=== PATIENT | male | born 1950 | race Caucasian/White ===

== ENCOUNTER 2019-07-10 07:54 | Outpatient (CLI) | payer MEDICARE, SELFPAY ==
--- NOTE | 2019-07-10 08:04 | USCV_ITS ---
Addison Mccloud Age: 68 Gender: M : 1950 Exam Date: 07/10/2019 08:22 Ordering Phys: Reymundo Cain MD Technologist: Lico Ramírez Exam Location: [facility] [place] Indication: PEDAL EDEMA BP: 134 / 84 HR: 67 Rhythm: Sinus Technical Quality: Fair MEASUREMENTS (Male / Female) Normal Values 2D ECHO LV Diastolic Diameter PLAX 3.2 cm 4.2 - 5.9 / 3.9 - 5.3 cm LV Systolic Diameter PLAX 2.5 cm IVS Diastolic Thickness 1.2 cm 0.6 - 1.0 / 0.6 - 0.9 cm IVS Systolic Thickness 1.5 cm LVPW Diastolic Thickness 1.1 cm 0.6 - 1.0 / 0.6 - 0.9 cm LVPW Systolic Thickness 1.3 cm LVOT Diameter 2.0 cm LV Ejection Fraction 2D Teich 47.8 % LV Ejection Fraction MOD 2C 55.2 % LV Ejection Fraction 2C AL 54.1 % LA Diameter 3.9 cm LA Width 3.9 cm LA Height 4.9 cm RA Width 3.6 cm RA Height 4.4 cm Aorta at Sinotubular Diameter 3.2 cm M-MODE LV Diastolic Diameter MM 5.4 cm 4.2 - 5.9 / 3.9 - 5.3 cm LV Systolic Diameter MM 3.7 cm LV Ejection Fraction MM Teich 59.1 % IVS Diastolic Thickness MM 1.3 cm 0.6 - 1.0 / 0.6 - 0.9 cm IVS Systolic Thickness MM 2.0 cm LVPW Diastolic Thickness MM 1.6 cm 0.6 - 1.0 / 0.6 - 0.9 cm LVPW Systolic Thickness MM 2.0 cm RV Diastolic Diameter MM 0.9 cm Aortic Annulus Diameter 4.0 cm LA Ao Ratio MM 1.0 MV E Point Septal Separation 1.1 cm DOPPLER AV Peak Velocity 113.0 cm/s LVOT Peak Velocity 82.0 cm/s AV Area Cont Eq vti 2.4 cm squared AV Area Cont Eq pk 2.3 cm squared MV Area PHT 5.0 cm squared Mitral E to A Ratio 0.7 MV E' Velocity 8.0 cm/s Mitral E to MV E' Ratio 8.2 Mitral E to LV E' Lateral Ratio 7.7 Mitral E to LV E' Septal Ratio 8.8 TR Peak Velocity 139.0 cm/s TR Peak Gradient 7.7 mmHg Right Atrial Pressure 3.0 mmHg Pulmonary Artery Systolic Pressu 10.7 mmHg FINDINGS Left Ventricle Normal LV size with slightly diminished ejection fraction 50%. Mild diffuse hypokinesia of the septum and the anteroseptal segments.Grade I/IV diastolic dysfunction (abnormal relaxation filling pattern), normal to mildly elevated filling pressures. Right Ventricle Possibly of normal size ejection fraction Right Atrium Possibly of normal size Left Atrium Appears to be of normal size. Mitral Valve No gross abnormalities noted Aortic Valve Thickened aortic valve. Tricuspid Valve No gross abnormalities noted Pulmonic Valve No gross abnormalities noted Pericardium No pericardial effusion. Aorta Normal aortic annulus size. CONCLUSIONS Normal LV size with slightly diminished ejection fraction 50%. Mild diffuse hypokinesia of the septum and the anteroseptal segments. Grade I/IV diastolic dysfunction (abnormal relaxation filling pattern), normal to mildly elevated filling pressures. Thickened aortic valve. There is no pericardial effusion. There are no intracardiac masses. Technically difficult study because of the poor ultrasonic window. Dr Lion Olguin MD FACC (Electronically Signed) Final Date: 10 July 2019 18:46 S
== END 2019-07-10 07:55 | disposition home or self-care (01) ==
PROVIDERS: Family Provider Family Medicine; PCP Family Medicine; Visit Provider Family Medicine
DX: I35.8 Other nonrheumatic aortic valve disorders (principal); R60.9 Edema, unspecified; R06.02 Shortness of breath; I25.10 Atherosclerotic heart disease of native coronary artery without angina pectoris; I10 Essential (primary) hypertension
CPT/HCPCS: 93306

== ENCOUNTER → 2021-03-31 08:33 | Outpatient (BNVA) | payer MEDICARE, SELFPAY | PROVIDERS: Family Provider Family Medicine; PCP Family Medicine; Referring Provider Family Medicine; Visit Provider Orthopaedic Surgery | DX: M54.50 Low back pain, unspecified (principal); M25.559 Pain in unspecified hip; M47.896 Other spondylosis, lumbar region | CPT/HCPCS: 72110; 73502 ==

== ENCOUNTER → 2021-06-18 00:01 | Outpatient (BNVA) | payer MEDICARE, SELFPAY | PROVIDERS: Family Provider Family Medicine; PCP Family Medicine; Visit Provider Orthopaedic Surgery | DX: Z20.822 Contact with and (suspected) exposure to COVID-19 (principal); M48.062 Spinal stenosis, lumbar region with neurogenic claudication | CPT/HCPCS: 87635 ==

== ENCOUNTER 2021-06-24 12:29 | Inpatient (IN) | payer MEDICARE, SELFPAY ==
[2021-06-22 07:59] VITALS: BMI 39.2
--- NOTE | 2021-06-22 08:03 | ECG_ITS ---
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 Measurements Intervals [place] Rate: 83 P: 49 HI: 200 QRS: -9 QRSD: 102 T: 75 QT: 376 QTc: 442 Interpretive Statements SINUS RHYTHM LOW QRS VOLTAGE IN PRECORDIAL LEADS [QRS DEFLECTION < 1.0 mV IN CHEST LEADS] No previous ECG available for comparison Electronically Signed On 06-22-2021 16:17:36 REPEAT PHOTOCOMPOSING MACHINE OPERATOR by Alejandra Kerr M.D. [id number]
[2021-06-22 09:06] LABS: Basophils # 0.1 10^3/uL (0.0-0.1); Basophils % 0.8 %; Eosinophils # 0.1 10^3/uL (0.0-0.8); Eosinophils % 2.2 %; Hematocrit 42.7 % (42.0-52.0); Hemoglobin 13.9 g/dL (11.7-16.6); Lymphocytes # 1.9 10^3/uL (0.8-4.8); Lymphocytes % 31.7 %; Mean Corpuscular HGB Conc 32.6 g/dL (30.0-36.0); Mean Corpuscular Hemoglobin 32.4 pg (28.0-34.0); Mean Corpuscular Volume 99.5 fl (80-94); Mean Platelet Volume 10.4 fL (7.4-10.4); Monocytes # 0.6 10^3/uL (0.2-0.9); Monocytes % 9.7 %; Neutrophils # 3.26 10^3/uL (1.8-7.7); Neutrophils % 55.4 %; Nucleated Red Blood Cells % 0 %; Platelet Count 214 10^3/cmm (130-400); Red Blood Count 4.29 10^6/uL (4.1-5.3); White Blood Count 5.9 10^3/uL (4.0-10.0)
--- NOTE | 2021-06-22 10:20 | P.ANESASSM_ITS ---
Pre-Anesthetic Assessment Height/Weight: Height 1.85 m Weight 134.717 kg Preop Diagnosis: Lumbar stenosis with claudication Operation Date: 06/24/21 07:00 Proposed Procedures p L3-S1 PSF &L5-S1 PLIF [id number]/89421/,48.062/m43.16(Not Applicable) - Abdiel Adkins, DO Familial anesthetic complications: Denies Was Beta Shakir taken within 24 hours: Yes Was Clonidine taken within 24 hours: N/A Social No alcohol and No tobacco Exam alert, oriented x 3, clear to auscultation bilaterally and regular rate & rhythm Airway Submandibular: within normal limits Cervical ROM: within normal limits Mallampati: Class II Dentition: false Pulmonary None reported CV/HEM Coronary Artery Disease (Patient's states he had coronary stent about 15 years ago denies recent CP) and Hypertension METs < 4 due to LE weakness TTE 06/2019 ?CONCLUSIONS ?Normal LV size with slightly diminished ejection fraction 50%.? ?Mild diffuse hypokinesia of the septum and the anteroseptal ?segments. ?Grade I/IV diastolic dysfunction (abnormal relaxation filling ?pattern), normal to mildly elevated filling pressures. ?Thickened aortic valve. ?There is no pericardial effusion. ?There are no intracardiac masses. ?Technically difficult study because of the poor ultrasonic ?window. Urinary retention GI None reported Metabolic None reported Musc/skel Lower Back Pain and Osteoarthritis/DJD Thoracic myelopathy Anesthetic Plan ASA status: 3 (70 year old w/ hx of CAD w/ coronary stent, lumbago, obesity, HTN, urinary retention, and myelopathy ) Anesthesia: Anesthesia Evaluation and General Other: We discussed risk and benefits of general anesthesia including PONV, sore throat (sometimes severe), corneal abrasion, positioning and peripheral nerve injuries, life threatening allergic reaction, post operative ICU admission requiring prolonged intubation, stroke, heart attack, , and rare incidences of recall. Patient consents to proceed with general anesthesia with possible apolinar rial line PRN. Risk of > 500 ml blood loss (7ml/kg in children): No Other Pertinent Information Hx of urinary retention following spinal surgery Medications/Allergies Home Medications Medication Instructions Recorded Confirmed Last Taken Type acetaminophen 325 mg tablet 650 mg PO Q6H PRN tab 11/14/19 06/22/21 Unknown History aspirin 81 mg tablet,delayed 81 mg PO DAILY 11/14/19 06/22/21 Unknown History release (Adult Low Dose Aspirin) cholecalciferol (vitamin D3) 25 25 mcg PO DAILY 11/14/19 06/22/21 Unknown History mcg (1,000 unit) capsule lisinopril 5 mg tablet 5 mg PO BEDTIME 11/14/19 06/22/21 Unknown History sennosides 8.6 mg-docusate sodium 2 tab-cap PO BID tab 11/14/19 06/22/21 Unknown History 50 mg tablet (Senna with Docusate Sodium) simvastatin 40 mg tablet 40 mg PO BEDTIME 11/14/19 06/22/21 Unknown History meloxicam 15 mg tablet (Mobic) 15 mg PO DAILY 06/22/21 06/22/21 Unknown History Allergies Allergy/AdvReac Type Severity Reaction Status Date / Time gabapentin Allergy Mild unknown Verified 05/26/21 08:56 [facility] Anesthesia Medical History BPH loc w urin obs/LUTS Constipation Degenerative lumbar spinal stenosis Dyslipidemia HTN (hypertension) Thoracic myelopathy Urinary retention Family History Father Cancer Brother Cancer Sister CAD (coronary artery disease) Mother CAD (coronary artery disease) Other Diabetes Social History Smoking and tobacco status: never smoked Alcohol intake: never Adopted: No Caregiver/support person: No Lives independently: No Household members: spouse Marital status: Current occupational status: retired Data Anesthesia : 06/22/21 08:51 Short CBC 06/22/21 Range/Units 08:51 WBC 5.9 (4.0-10.0) 10^3/uL Hgb 13.9 (11.7-16.6) g/dL Hct 42.7 (42.0-52.0) % MCV 99.5 H (80-94) fl Plt Count 214 (130-400) 10^3/cmm Neut % (Auto) 55.4 % Neut # (Auto) 3.26 (1.8-7.7) 10^3/uL Blood Bank 06/22/21 08:51 Blood Type A Positive Rho(D) Type Positive Cardiac Studies: Echocardiogram Ultrasound 07/10/19
[2021-06-24] VITALS (21 sets, daily range): BP systolic 110–166; BP diastolic 73–104; PULSE 80–110; RESP 12–21; TEMP 36.2–36.7; O2SAT 88–99; BMI 39.2
--- NOTE | 2021-06-24 | SCC_ITS ---
Procedure done: 1. L5/S1 Interbody fusion with posterolateral fusion 2. Instrumentation L2-S1 3. posterolateral fusion from L2-S1 4. Cage at L5/S1 5. Laminectomy L5 6. use of autograft from same incision 7. allograft 8. Bone marrow aspirate from right iliac crest 9. Computer navigation/ stereotactic for spine 9 seconds of fluoroscopic guidance, for a cumulative dose of 72.7 mGy, was provided to Dr. Adkins by the radiology department. C-arm images of the lumbar spine were saved for the patient's permanent record. [facility]
--- NOTE | 2021-06-24 06:41 | PM.HP ---
Providers/Chief Complaint Primary Care Provider: Reymundo Cain MD Chief Complaint: spinal stenosis, lumbar region History of Present Illness Addison Mccloud is a 70 year old male He describes having pain and weakness to his right hip. He states the pain to his his hip goes into his entire leg but is unable to specify on exact location. He feels his pain started years ago after working on a tractor all day. He states he had a lumbar spine surgery and two cervical spine surgeries done by Dr. Molina in [place] in February of 2020. He notes only a small amount of improvement in pain since surgery. Chief Complaint: right hip/low back Onset: 2 years Duration: years Characteristics: ache, weakness Severity: 5/10 Location: right hip/low back Radiating symptoms: right hip Aggravating factors: walking Alleviating factors: rest Neuro deficits: denies numbness, tingling,? incontinence of bowel/bladder, saddle anesthesia. Prior tx: 3 previous spine surgery done in [place]. Fusion to his lumbar and cervical with the last surgery in 2019, Inpatient physical therapy. Review of Systems Narrative: General ROS: negative for weight changes, fever ENT ROS: negative for nasal congestion, drainage or bleeding, sore throat, dysphagia or ear pain Eyes: PERRL Hematological and Lymphatic ROS: negative for swollen glands or abnormal bleeding Endocrine ROS: negative for polyuria/polydpsia or new changes in weight Respiratory ROS: negative for cough, shortness of breath, or wheezing Cardiovascular ROS: negative for chest pain or dyspnea on exertion Gastrointestinal ROS: negative for reflux, abdominal pain, change in bowel habits, or black or bloody stools Musculoskeletal ROS: negative for back pain, neck pain, or joint pain or swelling except for current problem Neurological ROS: negative for TIA or stoke symptoms Skin: no rashes Medications/Allergies Home Medications Medication Instructions Recorded Confirmed Last Taken Type acetaminophen 325 mg tablet 650 mg PO Q6H PRN tab 11/14/19 06/24/21 06/22/21 History aspirin 81 mg tablet,delayed 81 mg PO DAILY 11/14/19 06/24/21 06/22/21 History release (Adult Low Dose Aspirin) cholecalciferol (vitamin D3) 25 25 mcg PO DAILY 11/14/19 06/24/21 06/22/21 History mcg (1,000 unit) capsule lisinopril 5 mg tablet 5 mg PO BEDTIME 0706/24/21 06/22/21 History sennosides 8.6 mg-docusate sodium 2 tab-cap PO BID tab 11/14/19 06/24/21 06/22/21 History 50 mg tablet (Senna with Docusate Sodium) simvastatin 40 mg tablet 40 mg PO BEDTIME 11/14/19 06/24/21 06/22/21 History meloxicam 15 mg tablet (Mobic) 15 mg PO DAILY 06/22/21 06/24/21 06/22/21 History Allergies Allergy/AdvReac Type Severity Reaction Status Date / Time gabapentin Allergy Mild unknown Verified 06/24/21 06:00 PFSH Acute PFSH: Medical History BPH loc w urin obs/LUTS Constipation Degenerative lumbar spinal stenosis Dyslipidemia HTN (hypertension) Thoracic myelopathy Urinary retention Family History Father Cancer Brother Cancer Sister CAD (coronary artery disease) Mother CAD (coronary artery disease) Other Diabetes Social History Smoking and tobacco status: never smoked Alcohol intake: never Adopted: No Caregiver/support person: No Lives independently: No Household members: spouse Marital status: Current occupational status: retired Vitals/I&O/Wt Last Vital Signs Temp 97.3 F L 06/24/21 06:03 Pulse 80 06/24/21 06:03 Resp 16 06/24/21 06:03 BP 148/100 06/24/21 06:03 Pulse Ox 98 06/24/21 06:03 Weight last 48 hrs Weight 297 lb Weight 297 lb Physical Exam Narrative: CONSTITUTIONAL: The patient is a normal appearing [] in no apparent distress. GENERAL: Patient in no acute distress. CARDIAC: Regular rate and rhythm. CHEST: Normal inspiratory effort, normal respiratory rate. ABDOMEN: Soft and nontender. SKIN: Clear, warm and intact. NEURO?PSYCH: The patient is alert and oriented to person, place and time. Sensorv /SILT Motor StrengthShoulder abduction C5 5/5Wrist extension C6 5/5Elbow extension C7 5/5Hand Tattoo Technician C8 5/5Finger abduction T15/5 Radial/ Ulnar/ Median n intact LowerSensory (SILT)Motor StrengthHin flexion L2/3Ant/inner thigh 5/5Hip adduction L2/3 5/5Knee extension L4 Lat thigh, 5/5Toe dorsiflexion L5 5/5Ankle dorsiflexion L5/ J42Lojetiq flexion S1 5/5 DTRBleeps 2+Triceps 2+Brachioradialis 2+Patellar 2+Achilles 2+ MUSCULOSKELETAL: [] UPPEREXTREMITIES: The patient had full active ROM in fingers, wrist, elbow, and shoulder. The patient demonstrated ability to fully flex/extend/abduct/adduct fingers, make ok sign, cross 2nd/3rd digits, extend 1st digit fully.. Radial pulse 2+, CR<2 seconds. LOWER EXTREMITIES: Pt has full, active ROM of toes, ankle, knee, and hip. Dorsalis pedis/posterior tibialis pulses 2+, CR<2 seconds. SPINE: Skin warm, dry, intact. Data : 06/22/21 08:51 A&P Assessment and plan (1) Lumbar stenosis with neurogenic claudication: L2-S1 PSF, PLIF L5/S1 decompression Status: Acute Attestations Medical Necessity Statement*: failed conservative tx Coding Level of Care Code Acute Rent Collector for [facility] Fwd Diagnoses Lumbar stenosis with neurogenic claudication M48.062
[2021-06-24] MEDS: sodium chloride 0.9% 1,000 ML 30 ML IV (06:50)
--- NOTE | 2021-06-24 06:55 | P.ANESUD_ITS ---
Pre-Anesthetic Update Pre-Anesthetic Assessment: Date of Surgery/Procedure: 06/24/21 Preop Jessie gnosis: Degenerative disc disease with lumbar stenosis and neurogenic claudication Proposed Procedure: Operation Date: 06/24/21 07:00 Proposed Procedures p L3-S1 PSF &L5-S1 PLIF [id number]/01250/70717/,48.062/m43.16(Not Applicable) - Abdiel Adkins, DO Any changes to Pre-Anesthetic Assessment?: No Last Intake: Intake Last Liquid Date 06/23/21 Last Liquid Time 20:00 Last Solid Date 06/23/21 Last Solid Time 15:00 Labs Last 48hrs: Short CBC 06/22/21 Range/Units 08:51 WBC 5.9 (4.0-10.0) 10^3/ uL Hgb 13.9 (11.7-16.6) g/dL Hct 42.7 (42.0-52.0) % MCV 99.5 H (80-94) fl Plt Count 214 (130-400) 10^3/c mm Neut % (Auto) 55.4 % Neut # (Auto) 3.26 (1.8-7.7) 10^3/u L Blood Bank 06/22/21 08:51 Blood Type A Positive Rho(D) Type Positive Antibody Screen Negative Vitals: Temperature 97.3 F L 06/24/21 06:03 Temperature Source Temporal Artery S can 06/24/21 06:03 Pulse Rate 80 06/24/21 06:03 Respiratory Rate 16 06/24/21 06:03 Blood Pressure 148/100 06/24/21 06:03 Blood Pressure Negar n 116 06/24/21 06:03 Pulse Oximetry 98 06/24/21 06:03 Oxygen Delivery Me thod 06/24/21 06:03 Exam: Pre-Anes Outpt Exam: alert, oriented x 3, clear to auscultation bilaterally and regular rate & rhythm Cardiac Studies: Echocardiogram Ultrasound 07/10/19
[2021-06-24] MEDS: heparin, porcine 1,000 unit/mL INJ 10 mL 10000 UNIT IRRIGATION (07:30)
[2021-06-24] MEDS: vancomycin 1,000 MG SDV 1000 MG XX (07:30)
--- NOTE | 2021-06-24 10:52 | P.OP_ITS ---
Operative Report Date of procedure: June 24, 2021 Pre-op diagnosis: Preop Diagnosis Degenerative disc disease with lumbar stenosis and neurogenic claudication Post-op diagnosis: same Procedure done: 1. L5/S1 Interbody fusion with posterolateral fusion 2. Instrumentation L2-S1 3. posterolateral fusion from L2-S1 4. Cage at L5/S1 5. Laminectomy L5 6. use of autograft from same incision 7. allograft 8. Bone marrow aspirate from right iliac crest 9. Computer navigation/ stereotactic for spine Surgeon: Abdiel Adkins Ob Gyn Physician Assistant: Jamil Tompkins Ob Gyn Physician Assistant: The surgical garment assembly supervisor, Jamil Tompkins, PAC was needed for his expertise under the microscope. He was important and necessary throughout the procedure to complete in a safe and timely manner. He assisted with patient positioning prepping and draping tissue retraction suctioning of the operative field protection of the dural sac and tissue closure Estimated blood loss (mL): 200 Procedure: 1. L5/S1 Interbody fusion with posterolateral fusion 2. Instrumentation L2-S1 3. posterolateral fusion from L2-S1 4. Cage at L5/S1 5. Laminectomy L5 6. use of autograft from same incision 7. allograft 8. Bone marrow aspirate from right iliac crest 9. Computer navigation/ stereotactic for spine Patient is brought to the operative suite. After undergoing anesthesia, the patient had neuro monitoring attached. Patient was then placed in the prone position on the Juan table. All areas of impingement were well-padded. Patient was then prepped and draped in the normal sterile fashion. Skin incision was then made from L2 to S1 space. Subperiosteal dissection was made out to the transverse processes of L2 and L5 and the sacral ala (S1) bilaterally. Once the exposure was complete attention was then brought to obtaining the bone marrow aspirate. The [employer] bone marrow aspirate kit was used to aspirate bone marrow aspirate from the right iliac crest. This was done by using the sharp probe to open up the bone. Aspiration was performed and then the blunt probe was then used to dissect down to through the bone tunnel. An aspirating well drawn back a millimeter approximately 20 cc of bone marrow aspirate was used. Admixed with the allograft and autograft bone that will be used. Next attention was brought to placing the fiducial for the computer navigation. 2 pins were placed into the right iliac crest. The fiducial was attached. The C arm was then brought in and spun around the patient. The information from the serum was then linked through the fiducial through the computer in order to facilitate using computer navigation. The technique for placing the pedicle screws was to use a drill followed by the gearshift probe with computer navigation Followed by the ball probe to feel the superior inferior medial lateral duarte of the pedicles. Then placement of the screws with computer navigation Was done at each pedicle. Screws were placed at L2 bilaterally and L3 bilaterally, L4 bilaterally, L5 bilaterally, and S1 bilaterally. Next attention was brought to performing the laminectomy ofL5. This was done using the high-speed bur Kerrisons and curettes. Once the lamina was removed and then attention was brought to performing a partial facetectomy on the con tralateral side. This was done again using the high-speed bur curettes and Kerrisons. The ligamentum flavum was taken down bilaterally from L4 to S1. Attention was then brought to the facet on the ipsilateral side. The facet was taken down. The S1 nerve was decompressed as it passed around the S1 pedicle. The laminectomy was done for purposes of decompressing the nerve as well as placement of the cage. The L5 nerve was identified as it traversed through the L5/S1 foramen. The thecal sac was identified and retracted. The L5/S1 disc base was identified. Using a knife the disc base was opened. And then sequential del were placed. The first shaver was a 6 and the last shaver was a 13. Using a pituitary and down going curette the endplates were scraped and disc material was removed from the space. Once adequate decompression of the disc base was felt to be had. Osteoamp sponge was packed into the anterior aspect of the disc base. Then a size 13 cage from [employer] was placed after packing osteoamp into the cage. While placing the cage the thecal sac and S1 nerve was protected. C arm was used to ensure that the cages placed in the appropriate position. Attention was then brought to attaching the rods to the screws placed in the L2 to S1 bilaterally. Caps were torqued into position. Locking the construct in place. Wound was copiously irrigated and then attention was brought to decorticating the facets and transverse processes laterally. Bone that was taken down from the lamina was used along with osteoamp fibers and sponges were packed into the lateral gutters along the facet joints. This was done bilaterally. Wound was then closed in a layered fashion starting with the thoracolumbar fascia. 0-vicryl was used the sub cutaneous tissue was closed with 2-0 vicryl and skin with 4-0 monocryl. Glue was then used to seal the skin and a steril dressing was applied. Patient was then placed in the supine position. The endotracheal tube was removed and patient was transferred to the PACU in stable condition.
--- NOTE | 2021-06-24 10:56 | XR_ITS ---
WS: [id number] Lumbar spine, C-arm fluoroscopy, 06/24/2021 Clinical Data: OR PICS Comparison: None. Findings: Dr. Adkins performed a posterior lumbar fusion. XR/XR lumbar spine 1V [id number] Impression: Posterior lumbar fusion.
--- NOTE | 2021-06-24 11:43 | SUR.PHASEI ---
1137: patient brought into pacu on floor bed. patient asleep, simple mask placed with o2 at 8l and sats at 96%. patient has hemovac drain in place, barrios draining and abdominal binder on. toes are warm and pink bilaterally. 1151: patient still sleeping, no pain per faces.
--- NOTE | 2021-06-24 12:52 | ANE.PACU2 ---
Inpatient post-anesthesia follow up: Airway intact: Yes Vital signs: Temperature 97.1 F Pulse Rate 94 Respiratory Rate 20 Blood Pressure 136/100 Pulse Oximetry 94 Oxygen Delivery Me thod Nasal Cannula Oxygen Flow Rate 2 Fraction of Inspir ed Oxygen Hydration adequate: Yes Nausea and vomiting: No Pain level: 1 Mental status: Baseline
[2021-06-24] MEDS: HYDROcodone-acetaminophen 5-325 mg Tablet PO (13:35)
--- NOTE | 2021-06-24 13:54 | SUR.PHASEI ---
1225: patient transported to 273 via floor bed. patient on 2l NC, awake and alert. hemovac in place and draining. barrios in place and draining. patient has abd binder on. dressing dry and intact.
[2021-06-24] MEDS: lactated ringers 1,000 ML 90 ML IV (14:37)
[2021-06-24] MEDS: ketorolac 30 mg/mL INJ IVP (15:16)
[2021-06-24] MEDS: sennosides-docusate Tablet 2 TAB PO (17:27)
[2021-06-24] MEDS: docusate sodium 100 mg Capsule PO (17:27)
--- NOTE | 2021-06-24 19:26 | PC.NURSE ---
i reported high pulse 101 to nurse
[2021-06-24] MEDS: lisinopril 5 mg Tablet PO (20:33)
[2021-06-24] MEDS: atorvastatin 40 mg Tablet 20 MG PO (20:33)
[2021-06-25] MEDS: lactated ringers 1,000 ML 90 ML IV (01:40)
[2021-06-25] MEDS: HYDROcodone-acetaminophen 5-325 mg Tablet PO ×3 (01:43→11:46)
[2021-06-25 03:45] VITALS: BP 134/78; PULSE 97; RESP 17; TEMP 36.7; O2SAT 96
[2021-06-25] MEDS: enoxaparin 40 mg/0.4 mL Syringe SUBCUT (05:55)
--- NOTE | 2021-06-25 07:47 | PM.PN ---
Subjective Subjective: POD 1 Patient resting comfortably. Moderate back pain. Denies any headaches, chest pain, shortness of breath. Vitals/I&O/Wt Last Vital Signs Temp 98.0 F 06/25/21 03:45 Pulse 97 06/25/21 03:45 Resp 17 06/25/21 03:45 BP 134/78 06/25/21 03:45 Pulse Ox 96 06/25/21 03:45 06/24/21 06/25/21 06/25/21 22:59 06:59 14:59 Intake Total 1060 / 2620 1054.5 / 3674.5 Output Total 450 / 1075 1080 / 2155 Balance 610 / 1545 -25.5 / 1519.5 Weight last 48 hrs Weight 297 lb Physical Exam Narrative: Patient presents alert and oriented x3 with a good general appearance normal normal affect. Normal coordination normal stability. Mild tenderness around the incisional site with the incision appear to be clean and dry. No signs of erythema or drainage. No signs of infection. Patient denies any fevers or chills. 5/5 motor strength both lower extremities with negative straight leg raise bilaterally. Calves are supple no medial thigh tenderness. Pulses are 2+ at the dorsalis pedis and posterior tibial region. Good capillary refill throughout normal sensation light touch both lower extremities. Hemovac intact Urinary Catheter Management: Reid: Cath Placed During This Visit: yes Reason for Continuing Indwelling Catheter: Required Immobilization for Trauma or Surgery or Anesthesia Urinary Catheter Date of Insertion: 06/24/21 Urinary Catheter Time of Insertion: 07:15 Data : 06/22/21 08:51 A&P Assessment and plan (1) Status post lumbar spinal fusion: Encouraged him to continue walking program with physical therapy. No bending lifting and twisting. Discontinue the Hemovac drain and Reid catheter. Continue incentive spirometry for pulmonary toilet. Continue abdominal binder when he is ambulating and up in a chair for compression over the incisional area. We will discharge him home later today. We will see him back in the office in 1 week for wound check. He will call if he is having problems. Status: Acute Attestations Medical Necessity Statement*: DC home today Coding Level of Care Code Acute Respiratory Therapy Director for [facility] Diagnoses Status post lumbar spinal fusion Z98.1
[2021-06-25 08:32] VITALS: BP 100/60; BP 106/59; PULSE 96; RESP 20; TEMP 36.8; O2SAT 91
[2021-06-25] MEDS: aspirin 81 mg EC Tablet PO (08:32)
[2021-06-25] MEDS: cholecalciferol (vitamin D3) 1,000 unit Tablet 1000 UNIT PO (08:32)
[2021-06-25] MEDS: sennosides-docusate Tablet 2 TAB PO (08:32)
[2021-06-25] MEDS: meloxicam 7.5 mg tablet 15 MG PO (08:32)
[2021-06-25] MEDS: docusate sodium 100 mg Capsule PO (08:32)
[2021-06-25] MEDS: ketorolac 30 mg/mL INJ IVP (10:25)
--- NOTE | 2021-06-25 10:36 | PC.NURSE ---
Hemovac Drain removed per DR Adkins order. Pt tolerated it well. covered with qauze and tegaderm.
--- NOTE | 2021-06-25 10:52 | PC.CHAP ---
Pastoral Care Encounter/Spiritual Assessment Type of Contact [] Declined fisheries enforcement officer visit [] Patient/Family/Request visit [] Outpatient visit [] Follow-up visit [] Physician referral [] Code/Alert [x] Routine visit [] Staff referral [] Actively dying [] Patient sleeping [] Family support [] [] Out of room [] Palliative care [] [x] Receiving care in room [] Pre-surgical visit [] Trauma [] Long length of stay [] ICU visit [] Other: Relational/Emotional Strength [] Patient feels connected with others/family/visitors/staff [x] Distress [] Loneliness/isolation [] Abandonment Spirituality of Patient [x] Person of Bharti [] Attends Yazidism of their Bharti [x] Believes in Prayer [] Reads Bible or Synagogue materials [] There are Spiritual issues to be addressed Chief Financial Officer Interventions [x] Prayer [x] Active listening [x] Non-anxious presence [x] Spiritual/emotional support [] Crisis/trauma care [x] Spiritual counseling [] Bereavement support [] Provided bereavement packet [] Provided Bible/devotional materials [] Provided toy/stuffed animal, coloring book to patient or family member [] Provided Communion [] Anointing/[place] [] Salvation [x] Completed spiritual assessment [] Other: Impact on Illness or Injury [] Angry [x] Fearful [] Anxious [] Often cries [] Exhaustion [x] Unable to work [] Unable to attend orthodoxy [] Unable to walk/stand [] Unable to read [] Unable to drive [] Unable to eat/drink [] Unable to sleep [] Unable to be with family [] Patient intubated [] Other: Summary had surgery on back multa in painn is going home for rehab at home has a good attitude +1 to help Time spent with patient 10 mins
[2021-06-25 11:33] VITALS: BP 126/73; PULSE 78; RESP 17; TEMP 36.9; O2SAT 98
[2021-06-25] MEDS: tamsulosin 0.4 mg Capsule PO (15:46)
[2021-06-25 16:15] VITALS: BP 126/73; PULSE 78; RESP 17; TEMP 36.9; O2SAT 98
--- NOTE | 2021-06-28 10:21 | P.DS_ITS ---
Discharge Providers Date of Admission: 06/24/21 12:29 Date of Discharge: June 25, 2021 Attending Provider at Admission: Abdiel Adkins DO Attending Provider at Discharge: Abdiel Adkins DO Primary Care Provider: Reymundo Cain MD Diagnoses at Discharge Discharge Diagnosis (1) Status post lumbar spinal fusion: Status: Acute Reason for Visit Reason for Visit: spinal stenosis, lumbar region Hospital Course Hospital Course uneventful Physical Exam Urinary Catheter Management: Reid: Cath Placed During This Visit: yes, but has since been removed by the nurse Reason for Continuing Indwelling Catheter: Decision to DC Catheter Urinary Catheter Date of Insertion: 06/24/21 Urinary Catheter Time of Insertion: 07:15 Date Urinary Catheter Removed: 06/25/21 Time Urinary Catheter Discontinued: 10:35 Discharge Data Studies Completed and Pending Completed Studies During Hospitalization Category Date Time Status XR lumbar spine 1V [id number] Routine Exams 06/24/21 10:56 Completed Radiology Impressions Lumbar Spine X-Ray 06/24/21 10:56 Impression: Posterior lumbar fusion. Laboratory Results WBC 5.9 10^3/uL (4.0-10.0) 06/22/21 08:51 RBC 4.29 10^6/uL (4.1-5.3) 06/22/21 08:51 Hgb 13.9 g/dL (11.7-16.6) 06/22/21 08:51 Hct 42.7 % (42.0-52.0) 06/22/21 08:51 MCV 99.5 fl (80-94) H 06/22/21 08:51 MCH 32.4 pg (28.0-34.0) 06/22/21 08:51 MCHC 32.6 g/dL (30.0-36.0) 06/22/21 08:51 RDW 13.0 % (12.1-15.1) 06/22/21 08:51 Plt Count 214 10^3/cmm (130-400) 06/22/21 08:51 MPV 10.4 fL (7.4-10.4) 06/22/21 08:51 Neut % (Auto) 55.4 % 06/22/21 08:51 Lymph % (Auto) 31.7 % 06/22/21 08:51 Ripley % (Auto) 9.7 % 06/22/21 08:51 Eos % (Auto) 2.2 % 06/22/21 08:51 Baso % (Auto) 0.8 % 06/22/21 08:51 Neut # (Auto) 3.26 10^3/uL (1.8-7.7) 06/22/21 08:51 Lymph # (Auto) 1.9 10^3/uL (0.8-4.8) 06/22/21 08:51 Ripley # (Auto) 0.6 10^3/uL (0.2-0.9) 06/22/21 08:51 Eos # (Auto) 0.1 10^3/uL (0.0-0.8) 06/22/21 08:51 Baso # (Auto) 0.1 10^3/uL (0.0-0.1) 06/22/21 08:51 Nucleated RBC % (auto) 0 % 06/22/21 08:51 Nucleated RBCs # 0.0 /100WBC 06/22/21 08:51 Blood Type A Positive 06/22/21 08:51 Rho(D) Type Positive 06/22/21 08:51 Antibody Screen Negative 06/22/21 08:51 Vitals Last Vital Signs Temp 98.4 F 06/25/21 16:15 Pulse 78 06/25/21 16:15 Resp 17 06/25/21 16:15 BP 126/73 06/25/21 16:15 Pulse Ox 98 06/25/21 16:15 Discharge Plan Discharge Patient Disposition: Home Condition: Stable Prescriptions: New hydrocodone-acetaminophen 5-325 mg Tablet 1 - 2 tab PO Q4H PRN (Reason: Moderate To Severe Pain) Qty: 40 0RF Continued acetaminophen 325 mg tablet 650 mg PO Q6H PRN (Reason: Pain) 0RF cholecalciferol (vitamin D3) 25 mcg (1,000 unit) capsule 25 mcg PO DAILY 0RF sennosides-docusate sodium [Senna with Docusate Sodium] 8.6-50 mg tablet 2 tab-cap PO BID 0RF aspirin [Adult Low Dose Aspirin] 81 mg tablet,delayed release (DR/EC) 81 mg PO DAILY 0RF lisinopril 5 mg tablet 5 mg PO BEDTIME 0RF simvastatin 40 mg tablet 40 mg PO BEDTIME 0RF meloxicam [Mobic] 15 mg Tablet 15 mg PO DAILY 0RF Discharge Orders: Discharge Order (Routine); Ordered 06/25/21 Ordered By: Jamil Tompkins Referrals: Abdiel Adkins DO [Physician] - 07/02/21 1:45 pm Discharge Diet: Advance as tolerated Discharge Activity: Increase activity as tolerated Patient Instructions: Hydrocodone/Acetaminophen (By mouth), Lumbar Spinal Fusion (GEN), Opioid Safety Activity Restrictions/Additional Instructions: Thank you for choosing [facility] for your care! The following is a list of instructions, from your provider, to follow upon your discharge to ensure you have the optimal recovery from your recent injury or surgery. Follow-up care is a martinez part of your treatment and safety. Be sure to make and go to all appointments and call your doctor if you are having problems. If you do not already have a follow-up appointment made, call Dr. Adkins's] office in the next 1-3 days to make follow up appointment for 1 weeks at [phone]. It is also a good idea to know your test results and keep a list of the medicines you take. Medications will be prescribed for you at your provider's discretion. These medications are to be used as instructed; if they are taken more often that prescribed they will not be refilled early and in most cases will not be refilled at all. > When a refill is needed, you should contact neno kan 2-3 business days before your prescription runs out. Medications will NOT be refilled by clinical rehabilitation specialist providers after hours! > Many pain medications contain Tylenol (Acetaminophen). Do not consume more than 4,000 mg of Tylenol per day in total with any combination of medications. > Pain medications can cause constipation. Please use an over the counter stool softener as directed, while taking pain medications. Consult your local pharmacist with questions or recommendations on stool softeners. If constipation persists, contact our office or your primary care provider. > While under our care, you are not to receive pain medications or other controlled substances from any other provider unless our office is notified and approves. Any attempts to do so will result in refusal to prescribe any further pain medications and possible dismissal from our practice. ? Walking is essential for the healing process after surgery. We would like you to slowly advance your walking. This should be done on relatively flat clear ground (inside or out) or can be done on a treadmill. Remember this goal does not have to happen all at once, slowly increase your distance and duration. This can be broken into more more than one walk per day as tolerated. Patients who walk as directed after surgery rarely require Physical Therapy. In the unlikely event this issue arises your provider will direct hospital staff to make the appropriate arrangements. ? No lifting over 5 pounds {a gallon of milk) or bending/twisting until further notice. Each of these activities places an unnecessary amount of stress onto the body and can impede the delicate healing process. > Instead of bending at the waist, keep your back straight and bend at the knees. > Instead of twisting your torso, keep your back straight and turn your entire body with your feet. ? You may sleep in any position which makes you comfortable. Many patients find comfort sleeping in a reclining chair. It is not abnormal to have difficulty sleeping for the first several weeks following your surgery. We recommend trying Benadry! or Tylenol PM as directed to help with your sleeping difficulties. Both medications are over the counter and available without prescription. ? NO SMOKING!!! Smoking dramatically increases the probability of developing postoperative wound infections. ? Common complaints after lumbar and/or thoracic spine surgery include, but are not limited to: numbness and/or tingling in the legs, pain around the incision and surrounding tissues, muscle spasms, or stiffness of the middle to low back. Contact our office if these symptoms persist or if an acute change occurs. ? No driving for the first 3-5days, and not while taking narcotics until seen at your follow-up appointment and cleared. There are no restrictions for riding on short trips, however if you take a longer trip, arrangements should be made to make regular stops to get out of the vehicle and stretch . ? Swelling is an unfortunate event that will take place with any surgery and is the primary source of your postoperative discomfort. While walking and regular approved activities helps control inflammation, there are additional steps you can take to minimize swelling. > Place ice over the surgical site and surrounding tissue for twenty minutes, followed by applying a low/medium heat (heating pad) for an additional twenty minutes every 1-2 hours as needed for painrelief. > You may use of over the counter anti-inflammatory medications (Ibuprofen, Motrin, Aleve, Advil, etc) as directed on the package label. These types of medicines will significantly reduce the amount of discomfort you experience after surgery from swelling. It should be noted that if you have and allergy to any of these medications, or a history of ulcers or kidney disease you should consult you primary care provider prior to starting these medications. Discharge Attestations Time Spent in Discharge Care*: less than 30 min Quality Metrics Clinical Quality Measures [ No reported AMI, CVA or VTE this stay] Coding Level of Care Code Acute [facility] note Diagnoses Status post lumbar spinal fusion Z98.1
== END 2021-06-25 16:16 | disposition home or self-care (01) | DRG 454 ==
LOC: MEDSURG 12:37
PROVIDERS: Anesthesiology; Admitting Provider Orthopaedic Surgery; PCP Family Medicine; Visit Provider Orthopaedic Surgery
PROC: 0SG1071 Fusion of 2 or more Lumbar Vertebral Joints with Autologous Tissue Substitute, Posterior Approach, Posterior Column, Open Approach (ICD-10-PCS; CPT 22612; principal; 2021-06-24 07:00)
DX: M48.062 Spinal stenosis, lumbar region with neurogenic claudication (principal); M51.04 Intervertebral disc disorders with myelopathy, thoracic region; E78.5 Hyperlipidemia, unspecified; Z98.1 Arthrodesis status; N40.1 Benign prostatic hyperplasia with lower urinary tract symptoms; R33.8 Other retention of urine; I10 Essential (primary) hypertension
CPT/HCPCS: 36415; 51702; 72020; 76000; 85025; 86850; 86900; 93005; 96372; 97116; 97162; 97530; C1713; J0690; J1100; J1170; J1644; J1650; J1885; J2405; J2704; J3010; J3370; J3490; J7030

== ENCOUNTER → 2021-08-06 10:12 | Outpatient (BNVA) | payer MEDICARE, SELFPAY | PROVIDERS: PCP Family Medicine; Visit Provider Orthopaedic Surgery | DX: Z47.89 Encounter for other orthopedic aftercare (principal); Z98.890 Other specified postprocedural states; Z98.1 Arthrodesis status | CPT/HCPCS: 72100; 99024 ==

== ENCOUNTER 2021-08-07 11:40 | Outpatient (CLI) | payer MEDICARE, SELFPAY ==
--- NOTE | 2021-08-07 12:00 | CT_ITS ---
WS: [id number] CT LUMBAR SPINE, noncontrast. HISTORY: post op TECHNIQUE: Contiguous 2.5 mm axial imaging are performed. Sagittal and coronal reformats are submitte d and reviewed. All CT scans at [facility] use at least one of these dose optimization techni ques: automated exposure control; mA and/or kV adjustment per patient size (includes targeted exams w here dose is matched to clinical indication); or iterative reconstruction. IV contrast: None DLP: 2077.00 mGy.cm COMPARISON: 01/31/2020 and lumbar spine 08/06/2021 Patient is status post extensive posterior lumbar fusion. Fusion hardware extends from L2 to S1 bilat erally. Interbody spacer at L5-S1 has migrated posteriorly by 10 mm. The spacer extends 10 mm posteri or to the vertebral body, just to the LEFT of midline. Lucency adjacent to the LEFT L2 , S1 pedicle s crews and the RIGHT L2, L4 and L5 pedicle screws. No hardware fracture noted by CT. The pedicle screw attachment to the vertical lucas on the RIGHT is wider than the attachment at the remaining levels and on the LEFT. L1-2: Mild disc bulging and osteophytic ridging. Shallow LEFT foraminal disc protrusion. Mild central and subarticular recess narrowing. L2-3: Diffuse annular disc bulging with encroachment upon the ventral thecal sac. Moderate size RIGHT foraminal disc protrusion contacts both the L2 and L3 nerve roots. L3-4: Large posterior laminectomy defect. Osteophytic ridging and annular disc bulging. Bilateral for aminal narrowing. L4-5: Marked annular disc bulging and osteophytic ridging. Bilateral foraminal narrowing. Poor defini tion of the thecal sac and adjacent soft tissues secondary to postoperative changes. Large laminectom y defect. There are a few small osseous fragments at the surgical bed. L5-S1: Bone and soft tissue detail limited by the artifact. Bilateral laminectomy defects. Osteophyti c ridging. Retropulsion to the LEFT of the interbody spacer. There is probably contact on the LEFT S1 nerve root. Extensive postoperative changes and laminectomy defects posteriorly obscuring detail. The hardware ar tifact is also score obscuring bone and soft tissue detail lobulated cystic mass with calcified patie nt upper pole RIGHT kidney measures 4.[address]/CT lumbar spine wo con* [id number] IMPRESSION: 1. Extensive posterior lumbar fusion extending from L2 to S1. 2. Interbody spacer at L5-S1 has migrated posteriorly to the LEFT of midline. Very likely encroaching upon the LEFT S1 nerve root. 3. Large posterior laminectomy defects from L3 to L5 with extensive recent pos toperative changes in the soft tissues. 4. Lucency associated with several of the pedicle screws including bilateral L 2 pedicle screws, LEFT S1 pedicle screw, RIGHT L4 and L5 pedicle screws. This c an be seen with loosening.
== END 2021-08-07 11:41 | disposition home or self-care (01) ==
PROVIDERS: PCP Family Medicine; Visit Provider Orthopaedic Surgery
DX: Z98.1 Arthrodesis status (principal)
CPT/HCPCS: 72131

== ENCOUNTER 2021-08-09 14:51 | Inpatient (IN) | payer MEDICARE, SELFPAY ==
[2021-08-09 15:33] VITALS: BP 157/87; PULSE 96; RESP 18; TEMP 37.4; O2SAT 99; BMI 38.2
--- NOTE | 2021-08-09 19:45 | ED_ITS ---
HPI - Back Pain/Injury General: Chief Complaint: Back Pain/Injury Stated Complaint: Back pain Time Seen by Provider: 08/09/21 19:18 Source: patient Mode of arrival: ambulatory Limitations: no limitations History of Present Illness: Patient was directed to the emergency department because of increasing back pain; he had a spinal fusion done earlier this year on or about 25 June. Apparently had some disruption in his hardware that cause increasing pain and discomfort and concerned about potential for progression to cauda equina syndrome. He denies fevers, loss of bowel or bladder control, perineal numbness etc. He states his pain is increased over the past week. He denies any falls trauma or unusual activity that precipitated this increase in symptoms. MD elicited complaint: back pain Pertinent past history: prior back pain and back surgery Severity: moderate Similar Symptoms Previously: Yes Location: lumbar spine Associated symptoms: Reports no associated symptoms; Deny abdominal pain, chills, dysuria, fever(s), nausea, syncope or vomiting Review of Systems Const: Denies: fever(s) or chills Eyes: Denies: change in vision ENMT: Denies: throat pain or odynophagia Card: Denies: chest pain, palpitations, irregular heart rhythm, edema or syncope Resp: Denies: dyspnea, productive cough or non-productive cough GI: Denies: abdominal pain, nausea or vomiting : Denies: flank pain, difficulty urinating or dysuria Musc: Reports: back pain; Denies: neck pain, extremity pain, extremity swelling or joint pain Skin/Breast: Denies: rash Neuro: Denies: headache(s), numbness in extremities, weakness in extremities, sensory changes or Slurred speech present Psych: Denies: anxiety or depression Endo: Denies: polyuria or polydipsia PFSH ED PFSH: Medical History BPH loc w urin obs/LUTS Constipation Degenerative lumbar spinal stenosis Dyslipidemia HTN (hypertension) Thoracic myelopathy Urinary retention Family History Father Cancer Brother Cancer Sister CAD (coronary artery disease) Mother CAD (coronary artery disease) Other Diabetes Social History Smoking and tobacco status: never smoked Alcohol intake: never Adopted: No Caregiver/support person: No Lives independently: No Household members: spouse Marital status: Current occupational status: retired Physical Exam Narrative: EXAM NARRATIVE: The in no acute distress. He does ambulate with the aid of a walker. Speech is goal-directed. Const: COMMON NORMALS: no acute distress, patient oriented x3 and alert GENERAL APPEARANCE: cooperative HENMT: COMMON NORMALS: normocephalic, Normal nasal mucous membranes and turbinates present and moist oral mucous membranes HEAD & SCALP: normocephalic NOSE: Normal nasal mucous membranes and turbinates present Eye: COMMON NORMALS: Equal, round and reactive pupils present and EOMs intact bilaterally PUPIL: Yes Equal, round and reactive pupils present Neck/C-Spine: COMMON NORMALS: full ROM, no lymphadenopathy and no JVD Chest: COMMONS NORMALS: normal inspection of the chest Resp: COMMON NORMALS: normal respiratory effort, No retractions and clear to auscultation bilaterally AUSCULTATION: clear to auscultation bilaterally Cardio: COMMON NORMALS: no JVD, regular rate, No murmurs present (Cardio) and Peripheral pulses 2+ throughout RATE: regular rate PERIPHERAL PULSES: Peripheral pulses 2+ throughout GI: COMMON NORMALS: Normal to inspection, nondistended, normoactive bowel sounds present, Soft to palpation and non-tender PALPATION: Yes Soft to palpation : COMMON NORMALS: Yes no CVA tenderness BLADDER/KIDNEY EXAM: Yes no CVA tenderness Back/Pelvis: COMMON NORMALS: no CVA tenderness LUMBAR SPINE/LOWER BACK: Yes normal to inspection (Well-healed surgical scar without erythema or drainage) and No paraspinal muscle tenderness SACRUM: no tenderness Extremity: COMMON NORMALS: normal to inspection, full ROM, capillary refill normal, no calf tenderness and no pedal edema Neuro: COMMON NORMALS: patient oriented x3, moves all extremities, no focal motor deficits, no sensory deficits noted and deep tendon reflexes 2+ bilaterally SENSORIUM/ORIENTATION: Yes alert SPEECH: speech normal Psych: COMMON NORMALS: mental status grossly normal Skin: COMMON NORMALS: no rashes or lesions noted GENERAL SKIN EXAM: no rashes or lesions noted Course Consultations: Consultation #1: I discussed with his surgeon Dr. Adkins who requests that he be admitted from the emergency department with the plans for surgical revision of his spinal fusion. Time: 19:32 Vital Signs: Vital signs: Vital Signs Temperature 97.1 F L 08/09/21 20:15 Pulse Rate 74 08/09/21 20:15 Respiratory Rate 14 08/09/21 20:15 Blood Pressure 179/91 08/09/21 20:15 Pulse Oximetry 99 08/09/21 20:15 MDM - Back Pain/Injury Medical Decision Making This patient was directed to the emergency department for admission because of increasing back pain and a history of hardware disruption confirmed by CT scan 48 hours ago. His orthopedic spine surgeon plans on doing a revision in the morning. No evidence at this time to suggest acute cauda equina syndrome or other concerns. Stable for admission at this time. Medical Records I reviewed the patient's medical records. Discharge Plan Discharge Patient Disposition: Admitted As Inpatient Admit Provider: Abdiel Adkins Clinical Impression: Lumbar canal stenosis, Back pain Condition: Stable Coding Level of Care Code ED Spa Receptionist for Cj Santamaria
[2021-08-09 20:15] VITALS: BP 179/91; PULSE 74; RESP 14; TEMP 36.2; O2SAT 99
--- NOTE | 2021-08-09 20:16 | PC.NURSE ---
Patient states he has surgery 6 weeks ago, and then Tuesday he had pain and he reported this to his provider, imaging was done outpatient, he was instructed to come to ER and that he would be having surgery in the morning, he was told part of his surgery that was done 6 weeks ago has now come apart. Patient in chair 3 vertical flow, Dr. Andres will be in to assess patient.
[2021-08-09 21:34] VITALS: BMI 39.1
[2021-08-09 21:35] VITALS: BP 182/93; PULSE 104; RESP 18; TEMP 36.5; O2SAT 99
[2021-08-09] MEDS: sodium chloride 0.9% 1,000 ML 30 ML IV (23:32)
[2021-08-09 23:36] VITALS: RESP 18
[2021-08-09] MEDS: HYDROmorphone 1 mg/mL INJ 1 mL 0.5 MG IVP (23:36)
[2021-08-10] VITALS (24 sets, daily range): BP systolic 102–172; BP diastolic 66–119; PULSE 74–111; RESP 12–20; TEMP 36.3–36.8; O2SAT 93–100
--- NOTE | 2021-08-10 | SCC_ITS ---
Procedure done: 1. Lumbopelvic instrumentation 2. computer navigation/ stereotactic for spine 3. re adjusting deep hardware 39.2 seconds of fluoroscopic guidance, for a cumulative dose of 22.58 mGy, was provided to Dr. Adkins by the radiology department. C-arm images of the lumbar spine were saved for the patient's permanent record. [facility]
[2021-08-10] MEDS: HYDROmorphone 1 mg/mL INJ 1 mL 0.5 MG IVP (08:17)
--- NOTE | 2021-08-10 09:43 | W.PM.OPSUD ---
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
--- NOTE | 2021-08-10 09:44 | PM.HP ---
Providers/Chief Complaint Admitting Physician: Abdiel Adkins DO Primary Care Provider: Reymundo Cain MD Chief Complaint: Back pain History of Present Illness Addison Mccloud is a 70 year old male 6 weeks out from L3 to S1 fusion with PLIF. At this point cage is backing out and a screw cap appears to have come out. I am concerned that if the cage progresses any further he could get cauda equina syndrome Review of Systems Const: Denies: fever(s) or chills Eyes: Denies: change in vision ENMT: Denies: throat pain or odynophagia Card: Denies: chest pain, palpitations, irregular heart rhythm, edema or syncope Resp: Denies: dyspnea, productive cough or non-productive cough GI: Denies: abdominal pain, nausea or vomiting : Denies: flank pain, difficulty urinating or dysuria Musc: Reports: back pain; Denies: neck pain, extremity pain, extremity swelling or joint pain Skin/Breast: Denies: rash Neuro: Denies: headache(s), numbness in extremities, weakness in extremities, sensory changes or Slurred speech present Psych: Denies: anxiety or depression Endo: Denies: polyuria or polydipsia Medications/Allergies Home Medications Medication Instructions Recorded Confirmed Last Taken Type acetaminophen 325 mg tablet 650 mg PO Q6H PRN tab 11/14/19 08/06/21 06/22/21 History aspirin 81 mg tablet,delayed 81 mg PO DAILY 11/14/19 08/06/21 06/22/21 History release (Adult Low Dose Aspirin) cholecalciferol (vitamin D3) 25 25 mcg PO DAILY 11/14/19 08/06/21 06/22/21 History mcg (1,000 unit) capsule lisinopril 5 mg tablet 5 mg PO BEDTIME 11/14/19 08/06/21 06/22/21 History sennosides 8.6 mg-docusate sodium 2 tab-cap PO BID tab 11/14/19 08/06/21 06/22/21 History 50 mg tablet (Senna with Docusate Sodium) simvastatin 40 mg tablet 40 mg PO BEDTIME 11/14/19 08/06/21 06/22/21 History meloxicam 15 mg tablet (Mobic) 15 mg PO DAILY 06/22/21 08/06/21 06/22/21 History Bone Growth Stimulator E0748 #1 ea 07/10/21 08/06/21 Unknown Rx hydrocodone 5 mg-acetaminophen 325 1 - 2 tab PO Q4H PRN 7 Days #40 tab 07/23/21 08/06/21 Unknown Rx mg tablet Allergies Allergy/AdvReac Type Severity Reaction Status Date / Time gabapentin Allergy Mild unknown Verified 08/06/21 10:20 PFSH Acute PFSH: Medical History BPH loc w urin obs/LUTS Constipation Degenerative lumbar spinal stenosis Dyslipidemia HTN (hypertension) Thoracic myelopathy Urinary retention Family History Father Cancer Brother Cancer Sister CAD (coronary artery disease) Mother CAD (coronary artery disease) Other Diabetes Social History Smoking and tobacco status: never smoked Alcohol intake: never Adopted: No Caregiver/support person: No Lives independently: No Household members: spouse Marital status: Current occupational status: retired Vitals/I&O/Wt Last Vital Signs Temp 98.0 F 08/10/21 06:59 Pulse 74 08/10/21 09:30 Resp 18 08/10/21 09:30 BP 143/88 08/10/21 09:30 Pulse Ox 98 08/10/21 09:30 08/09/21 08/10/21 08/10/21 22:59 06:59 14:59 Intake Total 120 / 120 Balance 120 / 120 Weight last 48 hrs Weight 296 lb 7 oz Weight 290 lb Physical Exam Narrative: CONSTITUTIONAL: The patient is a normal appearing [] in no apparent distress. GENERAL: Patient in no acute distress. CARDIAC: Regular rate and rhythm. CHEST: Normal inspiratory effort, normal respiratory rate. ABDOMEN: Soft and nontender. SKIN: Clear, warm and intact. NEURO?PSYCH: The patient is alert and oriented to person, place and time. Sensorv /SILT Motor StrengthShoulder abduction C5 5/5Wrist extension C6 5/5Elbow extension C7 5/5Hand Prototype Carpenter C8 5/5Finger abduction T15/5 Radial/ Ulnar/ Median n intact LowerSensory (SILT)Motor StrengthHin flexion L2/3Ant/inner thigh 5/5Hip adduction L2/3 5/5Knee extension L4 Lat thigh, 5/5Toe dorsiflexion L5 5/5Ankle dorsiflexion L5/ O05Hyjwdlr flexion S1 5/5 DTRBleeps 2+Triceps 2+Brachioradialis 2+Patellar 2+Achilles 2+ MUSCULOSKELETAL: [] UPPEREXTREMITIES: The patient had full active ROM in fingers, wrist, elbow, and shoulder. The patient demonstrated ability to fully flex/extend/abduct/adduct fingers, make ok sign, cross 2nd/3rd digits, extend 1st digit fully.. Radial pulse 2+, CR<2 seconds. LOWER EXTREMITIES: Pt has full, active ROM of toes, ankle, knee, and hip. Dorsalis pedis/posterior tibialis pulses 2+, CR<2 seconds. SPINE: Skin warm, dry, intact. A&P Assessment and plan (1) Status post lumbar spinal fusion: Plan to revise cage and Right S1 screw Status: Acute Attestations Medical Necessity Statement*: cage is backing up concern for cauda equina syndrome Coding Level of Care Code Acute Construction Driver for Chg Fwd Diagnoses Status post lumbar spinal fusion Z98.1
--- NOTE | 2021-08-10 10:04 | P.ANESASSM_ITS ---
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 Operation Date: 08/10/21 10:45 Proposed Procedures p Revision of lumbar fusion with possible extension of hardware to pelvis(Not Applicable) - Abdiel Adkins, DO Familial anesthetic complications: None Was Beta Shakir taken within 24 hours: N/A Was Clonidine taken within 24 hours: N/A Last intake: Intake Last Liquid Date 08/09/21 Last Liquid Time 11:30 Last Solid Date 08/09/21 Last Solid Time 11:30 Social No alcohol and No tobacco Exam alert, oriented x 3, clear to auscultation bilaterally and regular rate & rhythm Airway Mallampati: Class III Dentition: false Pulmonary None reported CV/HEM Coronary Artery Disease (PCI 15 years ago) TTE 06/2019 ?CONCLUSIONS ?Normal LV size with slightly diminished ejection fraction 50%.? ?Mild diffuse hypokinesia of the septum and the anteroseptal ?segments. ?Grade I/IV diastolic dysfunction (abnormal relaxation filling ?pattern), normal to mildly elevated filling pressures. ?Thickened aortic valve. ?There is no pericardial effusion. ?There are no intracardiac masses. ?Technically difficult study because of the poor ultrasonic ?window. None reported Hepatic None reported GI None reported Metabolic Morbid Obesity [facility] Lower Back Pain Neuropsych None reported Anesthetic Plan ASA status: 3 Anesthesia: General Medications/Allergies Home Medications Medication Instructions Recorded Confirmed Last Taken Type acetaminophen 325 mg tablet 650 mg PO Q6H PRN tab 11/14/19 08/06/21 06/22/21 History aspirin 81 mg tablet,delayed 81 mg PO DAILY 11/14/19 08/06/21 06/22/21 History release (Adult Low Dose Aspirin) cholecalciferol (vitamin D3) 25 25 mcg PO DAILY 11/14/19 08/06/21 06/22/21 History mcg (1,000 unit) capsule lisinopril 5 mg tablet 5 mg PO BEDTIME 11/14/19 08/06/21 06/22/21 History sennosides 8.6 mg-docusate sodium 2 tab-cap PO BID tab 11/14/19 08/06/21 06/22/21 History 50 mg tablet (Senna with Docusate Sodium) simvastatin 40 mg tablet 40 mg PO BEDTIME 11/14/19 08/06/21 06/22/21 History meloxicam 15 mg tablet (Mobic) 15 mg PO DAILY 06/22/21 08/06/21 06/22/21 History Bone Growth Stimulator E0748 #1 ea 07/10/21 08/06/21 Unknown Rx hydrocodone 5 mg-acetaminophen 325 1 - 2 tab PO Q4H PRN 7 Days #40 tab 07/23/21 08/06/21 Unknown Rx mg tablet Allergies Allergy/AdvReac Type Severity Reaction Status Date / Time gabapentin Allergy Mild unknown Verified 08/06/21 10:20 Current Medications Generic Name Dose Route Start Last Admin Trade Name Freq PRN Reason Stop Dose Admin Hydromorphone HCl 0.5 mg 08/09/21 23:13 08/10/21 08:17 Hydromorphone 1 Mg/Ml Inj 1 Ml IVP 0.5 mg Q2H PRN Administration MODERATE TO SEVERE PAIN Sodium Chloride 1,000 mls @ 30 mls/hr 08/09/21 23:30 08/09/21 23:32 Sodium Chloride 0.9% IV 30 mls/hr .Q24H YOUNG Administration PFSH Anesthesia Medical History BPH loc w urin obs/LUTS Constipation Degenerative lumbar spinal stenosis Dyslipidemia HTN (hypertension) Thoracic myelopathy Urinary retention Family History Father Cancer Brother Cancer Sister CAD (coronary artery disease) Mother CAD (coronary artery disease) Other Diabetes Social History Smoking and tobacco status: never smoked Alcohol intake: never Adopted: No Caregiver/support person: No Lives independently: No Household members: spouse Marital status: Current occupational status: retired Data Anesthesia Cardiac Studies: Echocardiogram Ultrasound 07/10/19
[2021-08-10] MEDS: sodium chloride 0.9% 1,000 ML 30 ML IV (10:10)
[2021-08-10] MEDS: vancomycin 1,000 MG SDV 1000 MG XX (11:00)
--- NOTE | 2021-08-10 13:21 | XR_ITS ---
WS: [id number] Lumbar spine, C-arm fluoroscopy views, 08/10/2021 Clinical Data: OR PICS Comparison: None. Findings: Dr. Adkins performed a posterior lumbar fusion. XR/XR lumbar spine 1V [id number] Impression: Posterior lumbar fusion.
--- NOTE | 2021-08-10 13:32 | P.OP_ITS ---
Operative Report Date of procedure: August 10, 2021 Pre-op diagnosis: Preop Diagnosis Degenerative disc disease with lumbar stenosis and neurogenic claudication ; Failed hardware Post-op diagnosis: same Procedure done: 1. Lumbopelvic instrumentation 2. computer navigation/ stereotactic for spine 3. re adjusting deep hardware Surgeon: Abdiel Adkins [employer] Department Supervisor: Jamil Tompkins [facility] Department Supervisor: The surgical assistant certified, Jamil Tompkins, PAC was needed for his expertise under the microscope. He was important and necessary throughout the procedure to complete in a safe and timely manner. He assisted with patient positioning prepping and draping tissue retraction suctioning of the operative field protection of the dural sac and tissue closure Estimated blood loss (mL): 700 Procedure: 1. Lumbopelvic instrumentation 2. computer navigation/ stereotactic for spine 3. re adjusting deep hardware Patient was brought to the operative suite after undergoing anesthesia all areas impingement were well-padded patient was placed in the prone position. Skin incision was made using the distal part of the previous incision. Once the approach was brought down through was brought to the right side first. The end cap was identified there was missing in this and Was replaced. Next attention was brought to the left side. This is the side where the cage is backed out to. The careful dissection was made between the facet of L5 and S1 the dura was retracted and the cage was identified and the cage was tamped back into position had a solid endpoint and was not easily removed. The attention was then brought to compressing on the L5-S1 screws on the left side once his compression occurred the pedicle. 2 be fractured. At this point it was elected now to proceed with doing lumbopelvic fixation. The S1 screw that broke through the pedicle was removed and a iliac screw was placed. Prior to placing the iliac screw computer navigation was hooked up. The fiducial was attached to 2 pins. The pins were placed into the right iliac crest. And then the fusion was withdrawn. The C-arm was brought in in order to facilitate using computer navigation. Once the computer navigation was hooked up then attention was brought to placing the iliac screw. This was done by going through the sacral ala iliac approach. This is approximately 90 mm in length the gearshift probe which was linked to computer navigation was used followed by the pedicle wall feeler followed by the tap and then placement of the 8.5 x 90 mm screw. The same process was repeated on the right side. The right iliac screw was placed again using the gearshift probe was attached to computer navigation followed by placing the pedicle feeler followed by the tap followed by placing the screw under computer navigation. Again another 90 screw was placed. Next the connectors were then used in order to facilitate not having to expose the entire incision once this was done the screws were attached connectors were attached and then the separate rods were connected to the rods with lucas lucas connectors. The L5-S1 disc base was compressed on both sides AP lateral and inlet fluoroscopy was taken and showed and screws and hardware in upper position. Wounds were irrigated and closed with Vicryl. A deep drain was placed along with vancomycin powder. The wound was closed in layered fashion with 0 Vicryl 2-0 Vicryl and Monocryl suture. Sterile dressings were applied patient was transferred to the PACU in stable condition.
--- NOTE | 2021-08-10 14:12 | SUR.PHASEI ---
1357 PT TO PACU 5 PT DOES NOT AWAKE TO TOUCH OR VOICE, GOOD RESP EFFORT, 8LO2 MASK IN PLACE, DRESSING TO LOWER BACK D/I ABD BINDER IN PLACE PT WITH COUDE BYRNE AND STATLOCK TO RT INNER THIGH, BYRNE PATENT WITH YELLOW URINE NOTED TO TUBING AND BAG, PT HAS A HEMAVAC DRAIN WELL COMPRESSED WITH GOOD SUCTION ATTAINED , SMALL AMT RED DRAINAGE TO TUBING AND BAG, APPROX 10 ML. BILAT SCDS ON AND WORKING, IV TO RT AC #20 WITH 800 ML NS AT MOD RATE PER GRAVITY, PT ID BANDS TO LT WRIST, PT ID'D WITH 2 IDENTIFIERS . 1420 PT OPENS EYES AND LOOKS AT SPEAKER BUD DOES NOT FOLLOW COMMANDS OR SPEAK, PT ON 3LNC SATS 97% PT WITH SNORING RESP, NO DISTRESS NOTED. BILAT FEET WARM PINK WITH PULSES +2 MARKED.
--- NOTE | 2021-08-10 14:26 | SUR.PHASEI ---
PT LOG ROLLED WITH ASSIST OF 2NURSES, PT DRESSING TO LOWER BACK D/I NO BLEEDING OR HEMATOMA NOTED, VSS. PT STILL VERY GROGGY AND DID NOT ASSIST WITH ROLLING OR FOLLOW COMMANDS. WHEN AWAKENED AND QUESTIONED PT GRUNTS UH HUH, THEN BACK TO SLEEP.
--- NOTE | 2021-08-10 14:39 | SUR.PHASEI ---
1436 PT AWAKES AND IS ORIENTED TO SELF ONLY, PT DOES FOLLOW COMMANDS, PT KEEPS TAKING NASAL CANNULA OFF, PT INSTRUCTED TO KEEP O2 ON PT STATES OK, PT ORIENTED TO SELF ONLY, VSS DRAIN COMPRESSED AND GOOD SUCTION ATTAINED. VSS. PT SLEEPS IF NOT DISTURBED.
--- NOTE | 2021-08-10 14:42 | ANE.PACU2 ---
Inpatient post-anesthesia follow up: Airway intact: Yes Vital signs: Temperature 97.7 F Pulse Rate 75 Respiratory Rate 15 Blood Pressure 154/97 Pulse Oximetry 100 Oxygen Delivery Me thod Nasal Cannula Oxygen Flow Rate 3 Fraction of Inspir ed Oxygen Hydration adequate: Yes Nausea and vomiting: No Pain level: 2 Mental status: Baseline
--- NOTE | 2021-08-10 15:23 | SUR.PHASEI ---
PT TO FLOOR PER CART PT AWAKE ALERT TALKING AND LAUGHING WITH STAFF IN ROOM, PT IN ROOM, PT MOVED WITH SLIDEBOARD AND 4 STAFF, PT ALERT AND ASSISTING WITH LOG ROLL, DRESSING TO LOWER BACK D/I HEMAVAC DRAIN COMPRESSED AND DRAINING, BYRNE PATENT OF YELLOW URINE, HANDOFF AT BEDSIDE.
[2021-08-10] MEDS: lisinopril 5 mg Tablet PO (20:21)
[2021-08-10] MEDS: atorvastatin 40 mg Tablet 20 MG PO (20:22)
[2021-08-10] MEDS: HYDROcodone-acetaminophen 5-325 mg Tablet PO (20:22)
[2021-08-10] MEDS: lactated ringers 1,000 ML 90 ML IV (23:43)
[2021-08-11] VITALS: BP 125/77; PULSE 87; RESP 18; TEMP 37.1; O2SAT 92
[2021-08-11] MEDS: HYDROcodone-acetaminophen 5-325 mg Tablet PO (00:59)
[2021-08-11 03:45] VITALS: BP 122/73; PULSE 94; RESP 18; TEMP 37.2; O2SAT 94
[2021-08-11] MEDS: aspirin 81 mg EC Tablet PO (05:58)
[2021-08-11] MEDS: enoxaparin 40 mg/0.4 mL Syringe SUBCUT (05:58)
[2021-08-11 07:47] VITALS: BP 128/78; PULSE 90; RESP 18; TEMP 37.2; O2SAT 95
--- NOTE | 2021-08-11 08:23 | P.PN_ITS ---
Subjective Subjective: POD 1 Patient resting comfortably. Denies any back or leg pain. He is ready to go home. His family is present. Denies any shortness of breath, chest pain, headaches. Vitals/I&O/Wt Last Vital Signs Temp 99.0 F 08/11/21 07:47 Pulse 90 08/11/21 07:47 Resp 18 08/11/21 07:47 BP 128/78 08/11/21 07:47 Pulse Ox 95 08/11/21 07:47 08/10/21 08/11/21 08/11/21 22:59 06:59 14:59 Intake Total 60 / 539 300 / 839 Output Total 90 / 1090 1200 / 2290 Balance -30 / -551 -900 / -1451 Weight last 48 hrs Weight 296 lb 7 oz Weight 290 lb Physical Exam Narrative: Patient presents alert and oriented x3 with a good general appearance normal mood and affect. Normal coordination normal stability. Mild tenderness around the incisional site with the incision appear to be clean and dry. No signs of erythema or drainage. No signs of infection. Patient denies any fevers or chills. 5/5 motor strength both lower extremities with negative straight leg raise bilaterally. Calves are supple no medial thigh tenderness. Pulses are 2+ at the dorsalis pedis and posterior tibial region. Good capillary refill throughout normal sensation light touch both lower extremities. Urinary Catheter Management: Reid Latex: Cath Placed During This Visit: yes Reason for Continuing Indwelling Catheter: Required Immobilization for Trauma or Surgery or Anesthesia Urinary Catheter Date of Insertion: 08/10/21 Urinary Catheter Time of Insertion: 10:35 A&P Assessment and plan (1) Encounter for postoperative care: We will discontinue the Hemovac, Reid catheter. Have physical therapy fit him for a roller walker with a seat. Will discharge home this morning. He will follow-up in 1 week's time. Discussed no bending lifting or twisting activities continue walking program. Status: Acute (2) Status post lumbar spinal fusion: Status: Acute Attestations Medical Necessity Statement*: Charge home this morning Coding Level of Care Code Acute Strategic Planning Consultant for Cj Santamaria Diagnoses Encounter for postoperative care Z48.89 Status post lumbar spinal fusion Z98.1
[2021-08-11] MEDS: cholecalciferol (vitamin D3) 1,000 unit Tablet 1000 UNIT PO (08:28)
[2021-08-11] MEDS: docusate sodium 100 mg Capsule PO (08:28)
[2021-08-11] MEDS: sennosides-docusate Tablet 2 TAB PO (08:28)
[2021-08-11] MEDS: tamsulosin 0.4 mg Capsule PO (09:38)
[2021-08-11 11:20] VITALS: BP 99/62; PULSE 107; RESP 18; TEMP 36.8; O2SAT 96
--- NOTE | 2021-08-11 11:24 | PC.SOCIAL ---
DME Walker Patient was not triggered; DME Walker received with discharge orders. Spoke with patient and choice sheet signed. Faxed to HOME. This has been delivered. Patient denies any other needs.
[2021-08-11 12:25] VITALS: BP 99/62; PULSE 107; RESP 18; TEMP 36.8; O2SAT 96
--- NOTE | 2021-08-12 15:44 | P.DS_ITS ---
Discharge Providers Date of Admission: 08/09/21 19:50 Date of Discharge: August 11, 2021 Attending Provider at Admission: Abdiel Adkins DO Attending Provider at Discharge: Abdiel Adkins DO Primary Care Provider: Reymundo Cain MD Diagnoses at Discharge Discharge Diagnosis (1) Encounter for postoperative care: Status: Acute (2) Status post lumbar spinal fusion: Status: Acute Reason for Visit Reason for Visit: Back pain Hospital Course Hospital Course uneventful Physical Exam Urinary Catheter Management: Reid Latex: Cath Placed During This Visit: yes Reason for Continuing Indwelling Catheter: Required Immobilization for Trauma or Surgery or Anesthesia Urinary Catheter Date of Insertion: 08/10/21 Urinary Catheter Time of Insertion: 10:35 Discharge Data Studies Completed and Pending Completed Studies During Hospitalization Category Date Time Status XR lumbar spine 1V [id number] Routine Exams 08/10/21 13:21 Completed Radiology Impressions Lumbar Spine X-Ray 08/10/21 13:21 Impression: Posterior lumbar fusion. Vitals Last Vital Signs Temp 98.3 F 08/11/21 12:25 Pulse 107 H 08/11/21 12:25 Resp 18 08/11/21 12:25 BP 99/62 08/11/21 12:25 Pulse Ox 96 08/11/21 12:25 Discharge Plan Discharge Patient Disposition: Home Condition: Stable Prescriptions: New hydrocodone-acetaminophen 5-325 mg tablet 1 tab PO Q4H Qty: 40 0RF Continued acetaminophen 325 mg tablet 650 mg PO Q6H PRN (Reason: Pain) 0RF cholecalciferol (vitamin D3) 25 mcg (1,000 unit) capsule 25 mcg PO DAILY 0RF sennosides-docusate sodium [Senna with Docusate Sodium] 8.6-50 mg tablet 2 tab-cap PO BID 0RF aspirin [Adult Low Dose Aspirin] 81 mg tablet,delayed release (DR/EC) 81 mg PO QAM 0RF lisinopril 5 mg tablet 5 mg PO BEDTIME 0RF simvastatin 40 mg tablet 40 mg PO BEDTIME 0RF hydrocodone-acetaminophen 5-325 mg tablet 1 - 2 tab PO Q4H PRN (Reason: Moderate To Severe Pain) 7 Days Qty: 40 0RF (DME) Bone Growth Stimulator E0748 See Rx Instructions .Route .MEDSUPPLY Qty: 1 0RF Rx Instructions: As directed Held meloxicam [Mobic] 15 mg Tablet 15 mg PO QAM 0RF Hold Instructions: Resume on 09/15/21. No Action (DME) Seated Rolling Walker See Rx Instructions .Route .MEDSUPPLY Qty: 1 0RF Rx Instructions: As directed Discharge Orders: Discharge Order (Routine); Ordered 08/11/21 Ordered By: Jamil Tompkins Other Ambulatory Orders: DME: Walker (Order) Location: None Selected Ordered By: Abdiel Adkins Referrals: Abdiel Adkins DO [Physician] - 08/20/21 8:15 am Reymundo Cain MD [Primary Care Provider] - 08/18/21 10:30 am Discharge Diet: Advance as tolerated Discharge Activity: Resume usual activity Patient Instructions: Acute Wound Care (GEN), Lumbar Spinal Fusion (GEN), Opioid Safety Activity Restrictions/Additional Instructions: Thank you for choosing [facility] for your care! The following is a list of instructions, from your provider, to follow upon your discharge to ensure you have the optimal recovery from your recent injury or surgery. Follow-up care is a martinez part of your treatment and safety. Be sure to make and go to all appointments and call your doctor if you are having problems. If you do not already have a follow-up appointment made, call Dr. Adkins's] office in the next 1-3 days to make follow up appointment for 1 week at [phone]. It is also a good idea to know your test results and keep a list of the medicines you take. Medications will be prescribed for you at your provider's discretion. These medications are to be used as instructed; if they are taken more often that prescribed they will not be refilled early and in most cases will not be refilled at all. > When a refill is needed, you should contact lucius 2-3 business days before your prescription runs out. Medications will NOT be refilled by [facility] providers after hours! > Many pain medications contain Tylenol (Acetaminophen). Do not consume more than 4,000 mg of Tylenol per day in total with any combination of medications. > Pain medications can cause constipation. Please use an over the counter stool softener as directed, while taking pain medications. Consult your local pharmacist with questions or recommendations on stool softeners. If constipation persists, contact our office or your primary care provider. > While under our care, you are not to receive pain medications or other controlled substances from any other provider unless our office is notified and approves. Any attempts to do so will result in refusal to prescribe any further pain medications and possible dismissal from our practice. ? Walking is essential for the healing process after surgery. We would like you to slowly advance your walking. This should be done on relatively flat clear ground (inside or out) or can be done on a treadmill. Remember this goal does not have to happen all at once, slowly increase your distance and duration. This can be broken into more more than one walk per day as tolerated. Patients who walk as directed after surgery rarely require Physical Therapy. In the unlikely event this issue arises your provider will direct hospital staff to make the appropriate arrangements. ? No lifting over 5 pounds {a gallon of milk) or bending/twisting until further notice. Each of these activities places an unnecessary amount of stress onto the body and can impede the delicate healing process. > Instead of bending at the waist, keep your back straight and bend at the knees. > Instead of twisting your torso, keep your back straight and turn your entire body with your feet. ? You may sleep in any position which makes you comfortable. Many patients find comfort sleeping in a reclining chair. It is not abnormal to have difficulty sleeping for the first several weeks following your surgery. We recommend trying Benadry! or Tylenol PM as directed to help with your sleeping difficulties. Both medications are over the counter and available without prescription. ? NO SMOKING!!! Smoking dramatically increases the probability of developing postoperative wound infections. ? Common complaints after lumbar and/or thoracic spine surgery include, but are not limited to: numbness and/or tingling in the legs, pain around the incision and surrounding tissues, muscle spasms, or stiffness of the middle to low back. Contact our office if these symptoms persist or if an acute change occurs. ? No driving for the first 3-5days, and not while taking narcotics until seen at your follow-up appointment and cleared. There are no restrictions for riding on short trips, however if you take a longer trip, arrangements should be made to make regular stops to get out of the vehicle and stretch . ? Swelling is an unfortunate event that will take place with any surgery and is the primary source of your postoperative discomfort. While walking and regular approved activities helps control inflammation, there are additional steps you can take to minimize swelling. > Place ice over the surgical site and surrounding tissue for twenty minutes, followed by applying a low/medium heat (heating pad) for an additional twenty minutes every 1-2 hours as needed for painrelief. > You may use of over the counter anti-inflammatory medications (Ibuprofen, Motrin, Aleve, Advil, etc) as directed on the package label. These types of medicines will significantly reduce the amount of discomfort you experience after surgery from swelling. It should be noted that if you have and allergy to any of these medications, or a history of ulcers or kidney disease you should consult you primary care provider prior to starting these medications. Discharge Attestations Time Spent in Discharge Care*: less than 30 min Quality Metrics Clinical Quality Measures [ No reported AMI, CVA or VTE this stay] Coding Level of Care Code Acute Chg FW DC note Diagnoses Encounter for postoperative care Z48.89 Status post lumbar spinal fusion Z98.1
== END 2021-08-11 12:27 | disposition home or self-care (01) | DRG 460 ==
LOC: ER 20:11 → MEDSURG 20:13
PROVIDERS: Admitting Provider Orthopaedic Surgery; Emergency Provider Emergency Medicine; PCP Family Medicine; Visit Provider Orthopaedic Surgery
PROC: 0SG30J1 Fusion of Lumbosacral Joint with Synthetic Substitute, Posterior Approach, Posterior Column, Open Approach (ICD-10-PCS; CPT 22612; principal; 2021-08-10 10:35)
DX: T84.226A Displacement of internal fixation device of vertebrae, initial encounter (principal); Y79.3 Surgical instruments, materials and orthopedic devices (including sutures) associated with adverse incidents; M48.062 Spinal stenosis, lumbar region with neurogenic claudication; Z98.1 Arthrodesis status; N40.1 Benign prostatic hyperplasia with lower urinary tract symptoms; R33.8 Other retention of urine; E78.5 Hyperlipidemia, unspecified; I10 Essential (primary) hypertension; Z79.82 Long term (current) use of aspirin; Z79.891 Long term (current) use of opiate analgesic
CPT/HCPCS: 51702; 72020; 72100; 72131; 76000; 96372; 97116; 97162; 99024; 99285; C1713; J0690; J1100; J1170; J1650; J2405; J2704; J2710; J3010; J3370; J3490; J7030

== ENCOUNTER → 2021-08-18 11:40 | Outpatient (BNVA) | payer MEDICARE, SELFPAY | PROVIDERS: PCP Family Medicine; Visit Provider Family Medicine | DX: M54.30 Sciatica, unspecified side (principal); I25.10 Atherosclerotic heart disease of native coronary artery without angina pectoris; I10 Essential (primary) hypertension; Z51.81 Encounter for therapeutic drug level monitoring | CPT/HCPCS: 80053; 85025 ==

== ENCOUNTER → 2021-08-20 08:03 | Outpatient (BNVA) | payer MEDICARE, SELFPAY | PROVIDERS: PCP Family Medicine; Visit Provider Physician Assistant | DX: Z47.89 Encounter for other orthopedic aftercare (principal); Z98.890 Other specified postprocedural states; Z98.1 Arthrodesis status | CPT/HCPCS: 72100; 99024; 99999 ==

== ENCOUNTER → 2021-08-25 10:16 | Outpatient (BNVA) | payer MEDICARE, SELFPAY | PROVIDERS: PCP Family Medicine; Visit Provider Physician Assistant | DX: Z47.89 Encounter for other orthopedic aftercare (principal); Z98.890 Other specified postprocedural states; Z98.1 Arthrodesis status | CPT/HCPCS: 99024; 99999 ==

== ENCOUNTER → 2021-09-22 09:27 | Outpatient (BNVA) | payer MEDICARE, SELFPAY | PROVIDERS: PCP Family Medicine; Visit Provider Physician Assistant | DX: Z47.89 Encounter for other orthopedic aftercare (principal); Z98.1 Arthrodesis status | CPT/HCPCS: 72100; 99024 ==

== ENCOUNTER → 2021-11-03 09:25 | Outpatient (BNVA) | payer MEDICARE, SELFPAY | PROVIDERS: PCP Family Medicine; Visit Provider Physician Assistant | DX: Z47.89 Encounter for other orthopedic aftercare (principal); Z98.890 Other specified postprocedural states; Z98.1 Arthrodesis status | CPT/HCPCS: 72100; 99024 ==

== ENCOUNTER → 2022-02-09 08:38 | Outpatient (BNVA) | payer MEDICARE, SELFPAY | PROVIDERS: PCP Family Medicine; Visit Provider Physician Assistant | DX: Z47.89 Encounter for other orthopedic aftercare (principal); Z98.1 Arthrodesis status; R53.1 Weakness | CPT/HCPCS: 72100; 99024; 99213 ==

== ENCOUNTER 2022-02-17 06:00 | Outpatient (RCR) | payer MEDICARE, SELFPAY | END 2022-03-05 14:21 | disposition home or self-care (01) | LOC: SPT 06:00 | PROVIDERS: PCP Family Medicine; Visit Provider Physician Assistant | DX: Z98.1 Arthrodesis status (principal) | CPT/HCPCS: 97162 ==

== ENCOUNTER → 2022-08-31 08:22 | Outpatient (BNVA) | payer MEDICARE, SELFPAY | PROVIDERS: PCP Family Medicine; Visit Provider Family Medicine | DX: M54.9 Dorsalgia, unspecified (principal); I25.10 Atherosclerotic heart disease of native coronary artery without angina pectoris; E78.5 Hyperlipidemia, unspecified; I10 Essential (primary) hypertension; E55.9 Vitamin D deficiency, unspecified | CPT/HCPCS: 80053; 80061; 82306; 85025 ==

== ENCOUNTER → 2022-09-02 09:36 | Outpatient (BNVA) | payer MEDICARE, SELFPAY | PROVIDERS: PCP Family Medicine; Visit Provider Family Medicine | DX: M54.9 Dorsalgia, unspecified (principal); I25.10 Atherosclerotic heart disease of native coronary artery without angina pectoris; E78.5 Hyperlipidemia, unspecified; I10 Essential (primary) hypertension | CPT/HCPCS: 85025 ==

== ENCOUNTER → 2023-02-28 09:15 | Outpatient (BNVA) | payer MEDICARE, SELFPAY | PROVIDERS: PCP Family Medicine; Visit Provider Family Medicine | DX: E78.5 Hyperlipidemia, unspecified (principal); I10 Essential (primary) hypertension; I25.10 Atherosclerotic heart disease of native coronary artery without angina pectoris; M54.9 Dorsalgia, unspecified | CPT/HCPCS: 85025 ==

== ENCOUNTER 2023-08-06 19:56 | Emergency (ER) | payer MEDICARE, SELFPAY ==
[2023-08-06] VITALS (7 sets, daily range): BP systolic 149–185; BP diastolic 83–98; PULSE 88–103; RESP 17–22; TEMP 36.7; O2SAT 93–98
--- NOTE | 2023-08-06 19:58 | XRR_ITS ---
PROCEDURE INFORMATION: Exam: XR Chest Exam date and time: 08/06/2023 9:53 PM Age: 72 years old Clinical indication: Cough TECHNIQUE: Imaging protocol: Radiologic exam of the chest. Views: 1 view. COMPARISON: MR cervical spin wo con* [id number] 09/28/2019 11:15 AM FINDINGS: Lungs: Unremarkable. No consolidation. Pleural spaces: Unremarkable. No pleural effusion. No pneumothorax. Heart/Mediastinum: Unremarkable. No cardiomegaly. Bones/joints: Unremarkable. XR/XR chest 1V portable [id number] IMPRESSION: No acute findings.
[2023-08-06] MEDS: ipratropium-albuterol 3 mL Neb INHALATION ×2 (21:18→22:55)
--- NOTE | 2023-08-06 21:42 | ED_ITS ---
HPI - URI/Sore Throat 2 General: Chief Complaint: Upper Respiratory Infection Stated Complaint: Cold\Back Pain\Cough Time Seen by Provider: 08/06/23 20:39 History of Present Illness: Addison Mccloud is a 72-year-old male that presents to the emergency department with complaints of cough, congestion. Onset of symptoms approximately 1 week ago. On , 2 days ago, patient was evaluated by his primary care provider and started on Levaquin for pneumonia. He is also been taking Mucinex to help with cough. He does report poor oral intake increasing over the last couple days. Patient is nontoxic-appearing. He is afebrile. He denies any chest pain or shortness of breath. Does report body aches with cough. He does have a medical history that includes cardiovascular disease, hypertension, hyperlipidemia Review of Systems 2 General: Reports: 10 or more systems reviewed and unremarkable except in HPI and below Narrative: Patient reports that in the last week he has had fevers, chills, nonproductive cough PFSH ED 2 PFSH: Medical History CAD (coronary artery disease) BPH loc w urin obs/LUTS Constipation Thoracic myelopathy Dyslipidemia Degenerative lumbar spinal stenosis HTN (hypertension) Urinary retention Family History Father Cancer Brother Cancer Sister CAD (coronary artery disease) Mother CAD (coronary artery disease) Other Diabetes Social History Smoking and tobacco/nicotine status: never used tobacco/nicotine Alcohol intake: never Substance/Drug Use: unknown Adopted: No Caregiver/support person: No Lives independently: No Household members: spouse Marital status: Current occupational status: retired Physical Exam 2 Const: COMMON NORMALS: no acute distress, patient oriented x3 and alert G ENERAL APPEARANCE: cooperative ORIENTATION/CONSCIOUSNESS: Yes awake HENMT: COMMON NORMALS: normocephalic and atraumatic HEAD & SCALP: n ormocephalic and atraumatic FACE & SINUS: normal facial exam MOUTH: Normal oral and palatal mucosa present THROAT: posterior oropharynx normal Neck/C-Spine: COMMON NORMALS: full ROM GENERAL: Yes normal visual inspection Lymph: LYMPHATIC: no lymphadenopathy noted Chest: COMMONS NORMALS: normal inspection of the chest Breast/axilla inspection: Yes no chest deformity, asymmetry, normal contours, no nodules, masses, tenderness Resp: COMMON NORMALS: normal respiratory effort, No retractions and No use of accessory muscles EFFORT & INSPECTION: Yes able to speak in complete sentences and Yes symmetric chest movement AUSCULTATION: diminished lung sounds bilateral and diffuse Cardio: COMMON NORMALS: regular rate, regular rhythm and Peripheral pulses 2+ throughout RATE: regular rate RHYTHM: regular rhythm PERIPHERAL PULSES: Peripheral pulses 2+ throughout GI: COMMON NORMALS: Normal to inspection, nondistended, normoactive bowel sounds present, Soft to palpation, non-tender and No hepatosplenomegaly present INSPECTION: Yes normal to inspection AUSCULTATION: Yes normoactive bowel sounds PALPATION: Yes Soft to palpation and Yes No hepatosplenomegaly present RECTAL EXAM: Yes deferred Extremity: COMMON NORMALS: normal to inspection GENERAL: Yes normal exam except as noted Neuro: COMMON NORMALS: patient oriented x3 SENSORIUM/ORIENTATION: Yes alert CRANIAL NERVES: Yes CN normal except as noted Skin: COMMON NORMALS: no rashes or lesions noted, no wounds and turgor normal GENERAL SKIN EXAM: no rashes or lesions noted and turgor normal Course 2 Vital Signs: Vital signs: Vital Signs Temperature 98.1 F 08/06/23 19:59 Pulse Rate 92 08/06/23 23:02 Respiratory Rate 17 08/06/23 22:55 Blood Pressure 185/98 08/06/23 19:59 Pulse Oximetry 97 08/06/23 22:55 Oxygen Delivery Me thod Room Air 08/06/23 22:55 MDM - URI/Sore Throat Medical Decision Making Patient was evaluated in the emergency department for worsening cough, fevers, body aches. He underwent influenza and COVID testing which were negative He underwent a chest x-ray which revealed pneumonia He has already been started on Levaquin and Mucinex. But states Mucinex is not helping He admits to poor oral intake. I did obtain laboratory evaluations that included CBC and CMP. CBC and CMP are within normal limits. He was given 2 DuoNeb treatments and reports he feels much better although a little more jittery after the second dose. He is now producing sputum and states it feels much easier to breathe. He was given a dose of steroids here Going to advise him to keep taking the Levaquin. Keep taking the Mucinex but he needs to drink upwards of 8 glasses of water a day. This will help Patricio and mobilize secretions Patient verbalized understanding All questions answered Lab Data 08/06/23 21:50 08/06/23 21:50 Laboratory Results WBC 9.42 10^3/uL (3.29-11.43) 08/06/23 21:50 RBC 4.49 10^6/uL (3.85-5.65) 08/06/23 21:50 Hgb 14.30 g/dL (11.27-16.99) 08/06/23 21:50 Hct 44.8 % (37-53) 08/06/23 21:50 MCV 99.8 fl (82-101) 08/06/23 21:50 MCH 31.8 pg (27-33) 08/06/23 21:50 MCHC 31.9 g/dL (30-55) 08/06/23 21:50 RDW 12.9 % (12.1-15.1) 08/06/23 21:50 Plt Count 273 10^3/cmm (157-399) 08/06/23 21:50 MPV 9.9 fL (7.4-10.4) 08/06/23 21:50 Neut % (Auto) 44.6 % 08/06/23 21:50 Lymph % (Auto) 42.9 % 08/06/23 21:50 Wilkin % (Auto) 8.8 % 08/06/23 21:50 Eos % (Auto) 2.7 % 08/06/23 21:50 Baso % (Auto) 0.8 % 08/06/23 21:50 Neut # (Auto) 4.20 10^3/uL (1.8-7.7) 08/06/23 21:50 Lymph # (Auto) 4.0 10^3/uL (0.8-4.8) 08/06/23 21:50 Wilkin # (Auto) 0.8 10^3/uL (0.2-0.9) 08/06/23 21:50 Eos # (Auto) 0.3 10^3/uL (0.0-0.8) 08/06/23 21:50 Baso # (Auto) 0.1 10^3/uL (0.0-0.1) 08/06/23 21:50 Nucleated RBC % (auto) 0 % 08/06/23 21:50 Nucleated RBCs # 0.0 /100WBC 08/06/23 21:50 Sodium 135 mmol/L (136-145) L 08/06/23 21:50 Potassium 4.1 mmol/L (3.5-5.1) 08/06/23 21:50 Chloride 103 mmol/L (98-107) 08/06/23 21:50 Carbon Dioxide 19 mmol/L (22-29) L 08/06/23 21:50 Anion Gap 17.1 (5-19) 08/06/23 21:50 BUN 21 mg/dL (8-23) 08/06/23 21:50 Creatinine 0.9 mg/dL (0.7-1.2) 08/06/23 21:50 GFR Calculation Not Reportable 08/06/23 21:50 Glucose 113 mg/dL (65-115) 08/06/23 21:50 Calculated Osmolality 284 mOsm/kg (285-295) L 08/06/23 21:50 Calcium 9.5 mg/dL (8.5-10.5) 08/06/23 21:50 Total Bilirubin 0.4 mg/dL (0.15-1.2) 08/06/23 21:50 AST 29 U/L (0-40) 08/06/23 21:50 ALT 17 U/L (0-41) 08/06/23 21:50 Alkaline Phosphatase 106 U/L (40-130) 08/06/23 21:50 Total Protein 7.8 g/dL (6.6-8.7) 08/06/23 21:50 Albumin 3.8 g/dL (3.5-5.2) 08/06/23 21:50 Globulin 4.0 g/dL (1.3-4.6) 08/06/23 21:50 Influenza Type A Ag negative (Negative) 08/06/23 21:59 Influenza Type B Ag negative (Negative) 08/06/23 21:59 SARS-CoV-2 Ag (Rapid) negative (Negative) 08/06/23 21:59 All radiology interpretation(s) finalized by discharge Discharge Plan Discharge Patient Disposition: Home Clinical Impression: Pneumonia Condition: Stable Prescriptions: New albuterol sulfate [Proventil HFA] 90 mcg/actuation HFA aerosol inhaler 2 inh inhalation Q6H PRN (Reason: shortness of breath or wheezing) Qty: 6.7 0RF No Action acetaminophen 325 mg tablet 650 mg PO Q6H PRN (Reason: Pain) cholecalciferol (vitamin D3) 25 mcg (1,000 unit) capsule 25 mcg PO DAILY sennosides-docusate sodium [Senna with Docusate Sodium] 8.6-50 mg tablet 2 tab-cap PO BID aspirin [Adult Low Dose Aspirin] 81 mg tablet,delayed release (DR/EC) 81 mg PO QAM levofloxacin 750 mg tablet 750 mg PO DAILY Qty: 7 0RF (DME) Seated Rolling Walker See Rx Instructions .Route .MEDSUPPLY Qty: 1 0RF Rx Instructions: As directed simvastatin 40 mg tablet See Rx Instructions .ROUTE .COMPLEX Qty: 90 3RF Dose Instruction: TAKE 1 TABLET EVERY DAY Rx Instructions: TAKE 1 TABLET EVERY DAY lisinopril 5 mg tablet See Rx Instructions .ROUTE .COMPLEX Qty: 90 3RF Dose Instruction: TAKE 1 TABLET EVERY DAY Rx Instructions: TAKE 1 TABLET EVERY DAY Discharge Orders: Discharge ED (Routine); Ordered 08/06/23 Ordered By: Heath Wilcox [facility] Referrals: Reymundo Cain MD [Primary Care Provider] - Discharge Diet: Advance as tolerated Discharge Activity: Resume usual activity Patient Instructions: Bacterial Pneumonia (ED), Pain Management Activity Restrictions/Additional Instructions: Please continue to take the Levaquin. This is the best antibiotic for you as discussed. Please take the Mucinex. In order for Mucinex to work properly you need to drink plenty of water. I have provided you with a prescription of albuterol. This comes in the form as an inhaler. You are to take 2 puffs up to 4 times a day to help with wheezing and shortness of breath. Please return to the emergency department if your symptoms worsen. You need to follow-up with your primary care doctor this week for recheck Coding Level of Care Code ED Behavioral Health Specialist for Cj Santamaria
[2023-08-06 22:04] LABS: Basophils # 0.1 10^3/uL (0.0-0.1); Basophils % 0.8 %; Eosinophils # 0.3 10^3/uL (0.0-0.8); Eosinophils % 2.7 %; Hematocrit 44.8 % (37-53); Lymphocytes % 42.9 %; Mean Corpuscular HGB Conc 31.9 g/dL (30-55); Mean Corpuscular Hemoglobin 31.8 pg (27-33); Mean Corpuscular Volume 99.8 fl (82-101); Mean Platelet Volume 9.9 fL (7.4-10.4); Monocytes # 0.8 10^3/uL (0.2-0.9); Monocytes % 8.8 %; Neutrophils % 44.6 %; Nucleated Red Blood Cells % 0 %; Platelet Count 273 10^3/cmm (157-399); Red Blood Count 4.49 10^6/uL (3.85-5.65); Red Cell Distribution Width 12.9 % (12.1-15.1); White Blood Count 9.42 10^3/uL (3.29-11.43)
[2023-08-06 22:21] LABS: Influenza A by IFA negative (Negative); Influenza B by IFA negative (Negative); SARS Covid-2 Antigen negative (Negative)
[2023-08-06 22:30] LABS: Alanine Aminotransferase 17 U/L (0-41); Albumin Level 3.8 g/dL (3.5-5.2); Alkaline Phosphatase 106 U/L (40-130); Aspartate Amino Transferase 29 U/L (0-40); Blood Urea Nitrogen 21 mg/dL (8-23); Calcium 9.5 mg/dL (8.5-10.5); Carbon Dioxide 19 mmol/L (22-29); Chloride 103 mmol/L (98-107); Creatinine Clr Calc Pharmacy 107.4266; Glucose 113 mg/dL (65-115); Osmolality Calculated 284 mOsm/kg (285-295); Sodium 135 mmol/L (136-145); Total Bilirubin 0.4 mg/dL (0.15-1.2); Total Protein 7.8 g/dL (6.6-8.7)
[2023-08-06 22:33] LABS: Anion Gap 17.1 (5-19); Potassium 4.1 mmol/L (3.5-5.1)
[2023-08-06] MEDS: methylPREDNISolone (DEPO) 80 MG/ML INJ 1 mL IM (23:22)
[2023-08-07 00:07] VITALS: PULSE 98; O2SAT 98
== END 2023-08-07 00:10 | disposition home or self-care (01) ==
PROVIDERS: Emergency Medicine; Emergency Provider Nurse Practitioner; PCP Family Medicine
DX: J18.9 Pneumonia, unspecified organism (principal); Z79.82 Long term (current) use of aspirin; Z11.52 Encounter for screening for COVID-19; I25.10 Atherosclerotic heart disease of native coronary artery without angina pectoris; E78.5 Hyperlipidemia, unspecified; I10 Essential (primary) hypertension
CPT/HCPCS: 71045; 80053; 85025; 87426; 87804; 94640; 96372; 99284; J1010

== ENCOUNTER → 2023-09-07 08:28 | Outpatient (BNVA) | payer MEDICARE, SELFPAY | PROVIDERS: PCP Family Medicine; Visit Provider Family Medicine | DX: I25.10 Atherosclerotic heart disease of native coronary artery without angina pectoris (principal); I10 Essential (primary) hypertension; N40.1 Benign prostatic hyperplasia with lower urinary tract symptoms; E78.5 Hyperlipidemia, unspecified; R79.89 Other specified abnormal findings of blood chemistry | CPT/HCPCS: 80053; 80061; 82306 ==

== ENCOUNTER → 2024-03-07 08:15 | Outpatient (BNVA) | payer MEDICARE, SELFPAY | PROVIDERS: PCP Family Medicine; Visit Provider Family Medicine | DX: I10 Essential (primary) hypertension (principal); I25.10 Atherosclerotic heart disease of native coronary artery without angina pectoris | CPT/HCPCS: 80053; 80061; 85025 ==

== ENCOUNTER → 2024-09-06 08:03 | Outpatient (BNVA) | payer MEDICARE, SELFPAY | PROVIDERS: PCP Family Medicine; Visit Provider Family Medicine | DX: I25.10 Atherosclerotic heart disease of native coronary artery without angina pectoris (principal); I10 Essential (primary) hypertension; E78.5 Hyperlipidemia, unspecified; M54.9 Dorsalgia, unspecified; R73.9 Hyperglycemia, unspecified | CPT/HCPCS: 80053; 80061; 83036 ==

== ENCOUNTER → 2024-09-11 09:22 | Outpatient (BNVA) | payer MEDICARE, SELFPAY | PROVIDERS: PCP Family Medicine; Visit Provider Family Medicine | DX: I10 Essential (primary) hypertension (principal); R73.03 Prediabetes | CPT/HCPCS: 80053; 80061; 83036 ==

== ENCOUNTER 2025-03-21 07:37 | Outpatient (CLI) | payer MEDICARE, SELFPAY ==
--- NOTE | 2025-03-21 07:41 | XR_ITS ---
WS: [id number] Exam: XR chest 2V* [id number] Date/Time of Exam: 03/21/2025 7:46 AM Reason For Exam: chest pain Comparison 08/06/2023. Lungs are fully inflated and clear. Normal cardiomediastinal silhouette. No pleural effusions. Bony changes of the T-spine suggesting ankylosing spondylitis. Fusion hardware in the lower cervical spine. XR/XR chest 2V* [id number] IMPRESSION: 1. No acute cardiopulmonary finding.
[2025-03-21 08:44] LABS: Alanine Aminotransferase 20 U/L (0-41); Albumin Level 4.0 g/dL (3.5-5.2); Alkaline Phosphatase 98 U/L (40-130); Anion Gap 13.1 (5-19); Aspartate Amino Transferase 23 U/L (0-40); Blood Urea Nitrogen 22 mg/dL (8-23); Calcium 8.8 mg/dL (8.5-10.5); Carbon Dioxide 27 mmol/L (22-29); Chloride 104 mmol/L (98-107); Cholesterol 141 mg/dL (0-200); Globulin 2.8 g/dL (1.3-4.6); Glucose 100 mg/dL (65-115); HDL Cholesterol 35 mg/dL (60-100); Osmolality Calculated 293 mOsm/kg (285-295); Potassium 4.1 mmol/L (3.5-5.1); Sodium 140 mmol/L (136-145); Total Protein 6.8 g/dL (6.6-8.7); Triglycerides 147 mg/dL (0-150)
== END 2025-03-21 07:38 | disposition home or self-care (01) ==
LOC: LAB 07:38
PROVIDERS: PCP Family Medicine; Visit Provider Family Medicine
DX: R06.00 Dyspnea, unspecified (principal); E78.5 Hyperlipidemia, unspecified; I25.10 Atherosclerotic heart disease of native coronary artery without angina pectoris; R07.9 Chest pain, unspecified
CPT/HCPCS: 36415; 71046; 80053; 80061

== ENCOUNTER 2025-03-26 07:13 | Outpatient (CLI) | payer MEDICARE, SELFPAY ==
[2025-03-26 08:31] VITALS: BMI 39.6
--- NOTE | 2025-03-26 08:31 | ECG_ITS ---
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 Interpretive Statements Procedure: A total of 0.4 mg of Lexiscan was infused over 20 seconds. The stress phase was continued for a total of 5 minutes. Sestamibi was injected 20 seconds after the Lexiscan infusion. Findings:Patient's baseline blood pressure was 134/74 with a heart rate 63. The patient's blood pressure decreased to 139 over/71 with a heart rate to 99 bpm after the Lexiscan infusion. Baseline EKG showed sinus bradycardia with low voltage P waves and nonspecific T wave flattening as well as low voltage. There was 1 PVC in recovery. There were no new ST or T wave changes. Conclusion: 1. Stress EKG negative for inducible ischemia. 2. No Lexiscan induced chest pain. 3. Normal blood pressure and heart rate response. 4. Nuclear myocardial perfusion scan pending; see separate report. Electronically Signed On 03-27-2025 19:06:32 EXPORT COORDINATOR by Raymond Barajas M.D. [email or web address]
--- NOTE | 2025-03-26 08:31 | NMCV_ITS ---
NM dari perf SPECT r/s* [id number] Addison Mccloud Age: 74 Gender: M : 1950 Exam Date: 03/26/2025 08:41 Ordering Phys: Reymundo Cain MD Technologist: MADHU Hernandez Exam Location: [facility] Indications: cp STRESS TEST Please see separate stress test report in [facility] for full findings IMAGE PROTOCOL Rest/Stress 1 Lexiscan Day Radiopharmaceutical Dose (mCi) Administration Site Administered by Rest: Tc-99m 10.8 IV MADHU Hernandez Sestamibi Stress:Tc-99m 32.8 IV MADHU Montilla Sestamibi Rest: 26-Mar-2025 60 Discovery 630 Stress: 26-Mar-2025 30 Discovery 630 0.4mg Lexiscan. Supine position only as patient was unable to lay prone. SPECT RESULTS Technical Quality: Good Raw Data Analysis: Normal Image Corrections: No attenuation or motion correction applied Summed Stress Score: 0 Summed Rest Score: 2 Summed Difference Score: 0 PERFUSION FINDINGS SPECT images demonstrate homogeneous tracer distribution throughout the myocardium. FUNCTIONAL RESULTS (calculated via Gated SPECT) Stress Image LV EF (%): 71 Stress EDV (mL):113 TID: 1.16 Stress ESV (mL):33 FUNCTIONAL FINDINGS: There is normal left ventricular systolic function. IMPRESSIONS Myocardial perfusion imaging is normal. Normal left ventricular cavity size, systolic function and ejection fraction 71%. Raymond Barajas MD, FACC (Electronically Signed) Final Date: 27 March 2025 16:40 S
[2025-03-26 09:43] VITALS: BP 152/66; PULSE 84
== END 2025-03-26 07:14 | disposition home or self-care (01) ==
LOC: CDL 07:17
PROVIDERS: PCP Family Medicine; Visit Provider Family Medicine
DX: R07.9 Chest pain, unspecified (principal)
CPT/HCPCS: 36415; 78452; 93017; 96374; A9500; J2785